=== PATIENT | male | born 1960 | race Caucasian/White ===

== ENCOUNTER 2017-09-28 03:09 | Inpatient (IN) | payer MEDICAID ==
[2017-09-28] VITALS (9 sets, daily range): BP systolic 115–220; BP diastolic 66–128; PULSE 78–126; RESP 16–24; TEMP 98.7–100.3; O2SAT 95–99
[2017-09-28] MEDS ORDERED: OMEP40CA2 PO (03:50)
[2017-09-28] MEDS ORDERED: LISI-519 PO (03:50)
[2017-09-28] MEDS ORDERED: DOLU1TAB PO (03:50)
[2017-09-28] MEDS ORDERED: ADVA100A INH (03:50)
[2017-09-28] MEDS ORDERED: XIFA200T4 PO (03:50)
[2017-09-28] MEDS ORDERED: TRUV200300 PO (03:50)
[2017-09-28] MEDS ORDERED: CLOP75TA PO (03:50)
[2017-09-28] MEDS ORDERED: ALPR1TAB3 PO (03:50)
[2017-09-28] MEDS ORDERED: CARV3.12 PO (03:50)
[2017-09-28] MEDS ORDERED: SIMV5TAB3 PO (03:50)
[2017-09-28] MEDS ORDERED: FURO1TAB62 PO (03:50)
[2017-09-28] MEDS ORDERED: ASPI-516 CHEW (03:50)
[2017-09-28] MEDS ORDERED: LACT10SO PO (03:50)
--- NOTE | 2017-09-28 04:11 | PD ---
HPI Chief Complaint: GI Complaint Time Seen by Provider: 03:31 Travel History International Travel<30 days: No Contact w/Intl Traveler<30days: No Traveled to known affect area: No History of Present Illness HPI The patient is a 57 year old female who presents to the [facility] emergency department with a history of abdominal pain that he reports is been present for the last month. He reports that the pain is sharp in character. He reports that it is constant. He reports that it is generalized throughout his abdomen. Patient reports that he was last admitted to [facility] approximately a month ago. He reports that he was diagnosed with an upper GI bleed related to a peptic ulcer, bilateral pneumonia. The patient completed a course of antibiotic 1 week after being discharged from that facility. The patient reports having 13 hours of intractable nausea vomiting. The patient reports that he had vomiting too many times to count. He denies having any diarrhea. His last bowel movement was earlier today. He reports that he normally has soft stool related to being on lactulose. The patient reports a history of liver cirrhosis related to hepatitis C. The patient reports that he underwent treatment with Harvoni and is clear of his hepatitis C since 3 years ago. Patient additionally reports that he is HIV positive. He was diagnosed in 2010. The patient reports that his viral load is undetectable. He does not know what his last CD4 count was. He is currently taking retroviral medications. The patient denies having any known fevers. He denies having any worsening cough or congestion. He reports having shortness of breath. He denies having any chest pain. On review of systems otherwise, he denies having neck pain, urinary symptoms, or neurologic symptoms. The patient persistently asked for pain medicine on my arrival to the room. The patient reports that he is currently on methadone. His repeatedly shakes her head no that this is not true. He insists that it is and actually becomes argumentative with her over this. He reports that he has been in a methadone clinic in [place] for treatment. [facility] Past Medical History Narrative Medical The patient's past medical history is significant for a history of HIV, hepatitis C, cirrhosis, history of GI bleed from peptic ulcer disease, history of splenomegaly, atrial fibrillation, history of coronary artery disease with 2 prior stents being placed, history of pacemaker placement. Diminished Hearing: Yes ([place]) Immune Disorder: Yes (HIV) Medical other: Yes (CIRRHOSIS, HEPATOSPLENOMEGALY) Past Surgical History Narrative Surgical The patient's past surgical history is significant for cardiac catheterization with stent placement, pacemaker placement, endoscopy. Cardiac Surgery: Yes (PACEMAKER) Coronary Stent: Yes (X2) Pacemaker: Yes Social History Alcohol Use: No Tobacco Use: No Substance Use: No Allergies-Medications (Allergen,Severity, Reaction): Coded Allergies: ondansetron (Verified Adverse Reaction, Intermediate, Nausea/Vomiting, 09/28) Reported Meds & Prescriptions Reported Meds & Active Scripts Active Reported Xifaxan (Rifaximin) 200 Mg Tab 200 Mg PO Q8HR Truvada (Emtricitabine-Tenofovir Disoproxil Fumarate) 200-300 Mg Tab 1 Tab PO DAILY Tivicay (Dolutegravir Sodium) 50 Mg Tab 50 Mg PO DAILY Simvastatin 5 Mg Tab 5 Mg PO DAILY Omeprazole 40 Mg Cap 40 Mg PO DAILY Lisinopril 5 Mg Tab 5 Mg PO DAILY Lactulose Liq (Lactulose) 10 Gm/15 Ml Soln 30 Ml PO Q6H Lasix (Furosemide) 20 Mg Tab 20 Mg PO DAILY Clopidogrel (Clopidogrel Bisulfate) 75 Mg Tab 75 Mg PO DAILY Carvedilol 3.125 Mg Tab 3.125 Mg PO BID Aspirin 81 Mg Chew 81 Mg CHEW DAILY Alprazolam 1 Mg Tab 1 Mg PO Q6H PRN Advair Diskus Inh (Fluticasone-Salmeterol Inh) 100-50 Mcg/Blist Aer 1 Puff INH BID Rinse mouth after use. Review of Systems Except as stated in HPI: all other systems reviewed are Neg General / Constitutional: No: Fever Eyes: No: Visual changes HENT: No: Headaches Cardiovascular: No: Chest Pain or Discomfort Respiratory: No: Shortness of Breath Gastrointestinal: Positive: Nausea, Vomiting, No: Abdominal Pain Genitourinary: No: Dysuria Musculoskeletal: No: Pain Skin: No Rash Neurologic: No: Weakness Psychiatric: No: Depression Endocrine: No: Polydipsia Hematologic/Lymphatic: No: Easy Bruising Physical Exam Narrative General: The patient is a well-developed well-nourished male who is uncomfortable appearing on arrival, tachypneic. Head and Neck exam: Head is normocephalic atraumatic. Eyes: EOMI, pupils are equal round and reactive to light. Nose: Midline septum with pink mucous membranes Mouth: Dentition unremarkable. Moist mucus membranes. Posterior oropharynx is not erythematous. No tonsillar hypertrophy. Uvula midline. Airway patent. Neck: No palpable lymphadenopathy. No nuchal rigidity. No thyromegaly. Cardiovascular: Sinus tachycardia in the low 100 without murmurs, gallops, or rubs. No pulse deficit to the extremities on simultaneous auscultation and palpation of his radial artery. Lungs: Clear to auscultation bilaterally. No wheezes, rhonchi, or rales. The patient is tachypneic on exam. The patient has no retractions, no tripoding, no paroxysmal abdominal breathing Abdomen: Soft, with diffuse tenderness reported on palpation to all 4 quadrants of the abdomen worse in bilateral lower quadrant. No tenderness specifically on palpation of her McBurney's point. Normal bowel sounds are audible no guarding , rebound, or rigidity. Negative Jensen sign Extremities: No clubbing, cyanosis, or edema. 2+ pulses in all 4 extremities. No calf tenderness on palpation. Back: No spinous process tenderness to palpation. No costovertebral angle tenderness to palpation. Neurologic Exam: Cranial nerves 2-12 were intact on exam. Strength is 5/5 in all 4 extremities. No sensory deficits noted. The patient has generalized weakness. Skin Exam: No rash noted. Intact skin that is warm and dry. Data Data Last Documented VS Vital Signs Date Time Temp Pulse Resp B/P (MAP) Pulse Ox O2 Delivery O2 Flow Rate FiO2 09/28/17 05:48 84 18 146/75 (98) 99 Room Air 09/28/17 03:15 100.3 Orders Orders Electrocardiogram (09/28/17 03:52) Complete Blood Count With Diff (09/28/17 03:52) Comprehensive Metabolic Panel (09/28/17 03:52) Creatine Kinase (Cpk) (09/28/17 03:52) Ckmb (Isoenzyme) Profile (09/28/17 03:52) Troponin I (09/28/17 03:52) B-Type Natriuretic Peptide (09/28/17 03:52) Prothrombin Time / Inr (Pt) (09/28/17 03:52) Act Partial Throm Time (Ptt) (09/28/17 03:52) Arterial Blood Gas (Abg) (09/28/17 03:52) Blood Culture (09/28/17 03:52) C-Reactive Protein (Crp) (09/28/17 03:52) Lipase (09/28/17 03:52) Urinalysis - C+S If Indicated (09/28/17 03:52) Magnesium (Mg) (09/28/17 03:52) Chest, Single Ap (09/28/17 03:52) Ct Abd/Pel W Iv Contrast(Rout) (09/28/17 03:52) Iv Access Insert/Monitor (09/28/17 03:52) Ecg Monitoring (09/28/17 03:52) Oximetry (09/28/17 03:52) Blood Glucose (09/28/17 03:52) Drug Screen, Random Urine (09/28/17 03:52) Alcohol (Ethanol) (09/28/17 03:52) Salicylates (Aspirin) (09/28/17 03:52) Tylenol (Acetaminophen) (09/28/17 03:52) Lactic Acid Sepsis Protocol (09/28/17 03:52) Sodium Chlor 0.9% 1000 Ml Inj (Ns 1000 M (09/28/17 04:15) Prochlorperazine Inj (Compazine Inj) (09/28/17 04:15) Morphine Inj (Morphine Inj) (09/28/17 04:45) Sodium Chlor 0.9% 1000 Ml Inj (Ns 1000 M (09/28/17 04:45) Acetaminophen (Tylenol) (09/28/17 04:45) Ct Brain W/O Iv Contrast(Rout) (09/28/17 05:00) CKMB (09/28/17 04:05) CKMB% (09/28/17 04:05) Sodium Chlorid 0.9% 500 Ml Inj (Ns 500 M (09/28/17 06:00) Piperacil-Tazo 3.375 Gm Premix (Zosyn 3. (09/28/17 06:00) Vancomycin Inj (Vancomycin Inj) (09/28/17 06:00) Iodixanol 320 Inj (Rad Ct) (Visipaque 32 (09/28/17 06:00) Admit Order (Ed Use Only) (09/28/17 06:12) Labs Laboratory Tests Test 09/28/17 04:05 09/28/17 04:09/28/17 06:10 White Blood Count 13.2 TH/MM3 Red Blood Count 5.73 MIL/MM3 Hemoglobin 17.1 GM/DL Hematocrit 50.4 % Mean Corpuscular Volume 87.9 FL Mean Corpuscular Hemoglobin 29.9 PG Mean Corpuscular Hemoglobin Concent 34.0 % Red Cell Distribution Width 18.1 % Platelet Count 299 TH/MM3 Mean Platelet Volume 8.3 FL Neutrophils (%) (Auto) 78.5 % Lymphocytes (%) (Auto) 16.3 % Monocytes (%) (Auto) 4.8 % Eosinophils (%) (Auto) 0.1 % Basophils (%) (Auto) 0.3 % Neutrophils # (Auto) 10.3 TH/MM3 Lymphocytes # (Auto) 2.2 TH/MM3 Monocytes # (Auto) 0.6 TH/MM3 Eosinophils # (Auto) 0.0 TH/MM3 Basophils # (Auto) 0.0 TH/MM3 CBC Comment DIFF FINAL Differential Comment Prothrombin Time 11.7 SEC Prothromb Time International Ratio 1.2 RATIO Activated Partial Thromboplast Time 26.8 SEC Blood Urea Nitrogen 21 MG/DL Creatinine 1.84 MG/DL Random Glucose 177 MG/DL Total Protein 10.0 GM/DL Albumin 3.6 GM/DL Calcium Level 9.5 MG/DL Magnesium Level 2.3 MG/DL Alkaline Phosphatase 349 U/L Aspartate Amino Transf (AST/SGOT) 83 U/L Alanine Aminotransferase (ALT/SGPT) 37 U/L Total Bilirubin 1.5 MG/DL Sodium Level 141 MEQ/L Potassium Level 4.9 MEQ/L Chloride Level 113 MEQ/L Carbon Dioxide Level 16.7 MEQ/L Anion Gap 11 MEQ/L Estimat Glomerular Filtration Rate 38 ML/MIN Lactic Acid Level 2.4 mmol/L 1.2 mmol/L Total Creatine Kinase 103 U/L Creatine Kinase MB 4.6 NG/ML Troponin I 0.12 NG/ML C-Reactive Protein 1.74 MG/DL B-Type Natriuretic Peptide 174 PG/ML Lipase 151 U/L Salicylates Level LESS THAN 1.7 MG/DL Acetaminophen Level LESS THAN 2.0 MCG/ML Ethyl Alcohol Level LESS THAN 3 MG/DL Blood Gas Puncture Site LT RADIAL Blood Gas Patient Temperature 98.6 Blood Gas HCO3 18 mmol/L Blood Gas Base Excess -5.8 mmol/L Blood Gas Oxygen Saturation 94 % Arterial Blood pH 7.45 Arterial Blood Partial Pressure CO2 26 mmHg Arterial Blood Partial Pressure O2 78 mmHG Arterial Blood Oxygen Content 22.8 Vol % Arterial Blood Carboxyhemoglobin 1.0 % Arterial Blood Methemoglobin 0.5 % Blood Gas Hemoglobin 17.2 G/DL Oxygen Delivery Device ROOM AIR Blood Gas Inspired Oxygen 21 % MDM Medical Decision Making Medical Screen Exam Complete: Yes Emergency Medical Condition: Yes Medical Record Reviewed: Yes Differential Diagnosis DKA, versus starvation ketoacidosis, versus alcohol-related ketoacidosis, versus sepsis with lactic acidosis Narrative Course During the course of the patient's emergency department visit, the patient's history, examination, and differential diagnosis were reviewed with the patient. The patient was placed on a environmental monitoring specialist with oximetry and frequent blood pressure monitoring. The patient had IV access obtained and blood work sent for analysis. The patient had an ABG done on arrival. The patient's ABG revealed a pH of 7.447, PCO2 25.8, PO2 77.6, bicarb 17.5, hemoglobin 17.2. The patient was initially provided normal saline 2 L IV fluid bolus, Compazine 5 mg IV for nausea, morphine 4 mg IV for pain. After the patient was noted to have a leukocytosis patient was started on broad-spectrum antibiotics to include vancomycin 1 g IV, Zosyn 3.375 g IV. The patient's laboratory studies were reviewed and remarkable for a white count of 13.2, hemoglobin 17.1, platelets 299 with neutrophils 78.5. CMP is remarkable for chloride of 113, bicarb 16.7, BUN 21, creatinine 1.84, glucose 177, total bilirubin 1.5, AST 83, alk phos 349, CPK 103, CK-MB 4.6, troponin I is 0.12 likely related to tachycardia and renal insufficiency as the patient denies having any chest pain, C-reactive protein 1.74, BNP 174, total protein 10 , lipase 151, PT 11.7, PTT 26.8, PT 11.7, PTT 26.8 Radiology studies were reviewed and remarkable for a chest x-ray that shows small pleural-based opacities bilaterally could represent pleural thickening or small volume of pleural fluid otherwise unremarkable. CT scan of the brain shows no acute intracranial abnormality. CT scan of the abdomen and pelvis shows mild wall thickening and surrounding inflammation of the proximal sigmoid colon which could represent a colitis. There is left gastric lymphadenopathy from uncertain etiology. Abnormal loculated liver characteristic of cirrhosis. There is right lower lobe atelectasis. The patient's results were discussed with the patient, including the plan of care. I explained that further testing and/ or monitoring is indicated based on the patient's history, examination, and/ or laboratory findings. Therefore, I recommended admission for additional evaluation. The patient expressed understanding and was agreeable with this plan. The patient was admitted to the hospital in guarded condition and sent to a bed under the care of the [facility]. Critical Care Narrative Aggregate critical care time was 35 minutes. Time to perform other separately billable procedures was not included in the critical care time. My time did not include minutes spent treating any other patients simultaneously or on activities that did not directly contribute to the patient's treatment. The services I provided to this patient were to treat and/or prevent clinically significant deterioration that could result in: Cardiovascular collapse from sepsis, versus fluid overload with respiratory failure from resuscitation with crystalloid I provided critical care services requiring my management, as noted below: Chart data review, documentation time, medication orders and management, vital sign assessments/reviewing monitor data, ordering and reviewing lab tests, ordering and interpreting/reviewing x-rays and diagnostic studies, care of the patient and discussion of the patient with the admitting physicians. Sepsis Criteria SIRS Criteria (2 or more): Heart rate over 90, WBC > 63381, < 4000 or > 10% bands Sepsis Criteria (SIRS+source): Infect source susp/known Severe Sepsis (+one): Lactate >2 Criteria Outcome: Meets SIRS criteria, Meets sepsis criteria, Meets severe sepsis criteria Physician Communication Physician Communication The patient's case including history, pertinent physical examination findings, and laboratory studies were discussed with Dr. Melara. It was agreed that the patient would be admitted to the [facility] service. Diagnosis Primary Impression: Colitis Additional Impressions: Dehydration Lactic acid acidosis Admitting Information Admitting Physician Requests: Admit Yola Lewis MD Sep 28, 2017 04:11
[2017-09-28] MEDS ORDERED: SODIUM CHLOR 0.9% 1000 ML INJ 1,000 ML IV ONE ×2 (04:15→04:45)
[2017-09-28] MEDS ORDERED: PROCHLORPERAZINE INJ 10 MG/2 ML VIAL IV PUSH ONE (04:15)
[2017-09-28 04:26] LABS: AUTOMATED NEUTROPHIL # 10.3 TH/MM3 (1.8-7.7); BASOPHIL % 0.3 % (0.0-2.0); EOSINOPHIL % 0.1 % (0.0-4.0); HEMATOCRIT 50.4 % (39.0-51.0); HEMOGLOBIN 17.1 GM/DL (13.0-17.0); LYMPH % 16.3 % (9.0-44.0); LYMPHOCYTE # 2.2 TH/MM3 (1.0-4.8); MEAN CELL VOLUME 87.9 FL (80.0-100.0); MEAN CORPUSCULAR HEMOGLOBIN 29.9 PG (27.0-34.0); MEAN PLATELET VOLUME 8.3 FL (7.0-11.0); MONO % 4.8 % (0.0-8.0); MONOCYTE # 0.6 TH/MM3 (0-0.9); NEUT % 78.5 % (16.0-70.0); PLATELET COUNT 299 TH/MM3 (150-450); RED BLOOD COUNT 5.73 MIL/MM3 (4.50-5.90); RED CELL DISTRIBUTION WIDTH 18.1 % (11.6-17.2); WHITE BLOOD COUNT 13.2 TH/MM3 (4.0-11.0)
[2017-09-28 04:27] LABS: INTERNATIONAL NORMALIZED RATIO 1.2 RATIO; PROTHROMBIN TIME - PATIENT 11.7 SEC (9.8-11.6)
[2017-09-28 04:45] LABS: LACTIC ACID SEPSIS PROTOCOL 2.4 mmol/L (0.4-2.0)
[2017-09-28] MEDS ORDERED: MORPHINE SULFATE 4 MG/ML INJ IV PUSH ONE (04:45)
[2017-09-28] MEDS ORDERED: ACETAMINOPHEN 325 MG TAB PO ONE (04:45)
[2017-09-28 04:55] LABS: ALBUMIN 3.6 GM/DL (3.4-5.0); ALKALINE PHOSPHATASE 349 U/L (45-117); ALT (GPT) 37 U/L (12-78); AST (GOT) 83 U/L (15-37); BICARBONATE 16.7 MEQ/L (21.0-32.0); BLOOD UREA NITROGEN 21 MG/DL (7-18); C-REACTIVE PROTEIN 1.74 MG/DL (0.00-0.30); CALCIUM 9.5 MG/DL (8.5-10.1); CHLORIDE 113 MEQ/L (98-107); CREATININE 1.84 MG/DL (0.60-1.30); GLOMERULAR FILTRATION RATE 38 ML/MIN (>89); GLUCOSE,RANDOM 177 MG/DL (74-106); MAGNESIUM 2.3 MG/DL (1.5-2.5); SODIUM (NA) 141 MEQ/L (136-145); TOTAL BILIRUBIN ADULT 1.5 MG/DL (0.2-1.0); TROPONIN I 0.12 NG/ML (0.02-0.05)
--- NOTE | 2017-09-28 05:03 | RADRPT ---
EXAM DATE/TIME: 09/28/2017 04:21 [facility] COMPARISON: No previous studies available for comparison. INDICATIONS : Shortness of breath. MEDICAL HISTORY : None. SURGICAL HISTORY : Pacemaker. ENCOUNTER: Initial ACUITY: 1 day PAIN SCORE: 6/10 LOCATION: Bilateral chest FINDINGS: Portable AP view of the chest demonstrates a normal-sized cardiac silhouette. Left chest wall cardiac pacing device is present. No airspace consolidation or pneumothorax is identified. There are small p leural-based opacities bilaterally in the inferior hemithoraces. Bones and soft tissues demonstrate n o acute finding. CONCLUSION: Small pleural-based opacities bilaterally could represent pleural thickening or small volume of pleur al fluid. Otherwise, no acute finding is identified. Juan Carlos Langley MD on September 28, 2017 at 5:01 Board Certified Radiologist. This report was verified electronically.
[2017-09-28 05:05] LABS: ACETAMINOPHEN LESS THAN 2.0 MCG/ML (10.0-30.0)
[2017-09-28] MEDS ORDERED: PIPERACIL-TAZO 3.375 GM PREMIX 50 ML IV ONE (06:00)
[2017-09-28] MEDS ORDERED: IODIXANOL 320 MG/ML 10 ML VIAL (for Rad CT) IVCONTRAST ONE (06:00)
[2017-09-28] MEDS ORDERED: SODIUM CHLORID 0.9% 500 ML INJ 500 ML IV ONE (06:00)
[2017-09-28] MEDS ORDERED: VANCOMYCIN INJ 1,000 MG in SODIUM CHLOR 0.9% 250 ML INJ 250 ML IV ONE (06:00)
--- NOTE | 2017-09-28 06:14 | RADRPT ---
EXAM DATE/TIME: 09/28/2017 05:30 [facility] COMPARISON: No previous studies available for comparison. INDICATIONS : Altered mental status. RADIATION DOSE: 66.34 CTDIvol (mGy) ; Tabletop CT Head MEDICAL HISTORY : Cirrhosis. HIV. SURGICAL HISTORY : Pacemaker. Coronary artery stent. ENCOUNTER: Initial ACUITY: 1 day PAIN SCALE: 0/10 LOCATION: cranial TECHNIQUE: Multiple contiguous axial images were obtained of the head. Using automated exposure control and adj ustment of the mA and/or kV according to patient size, radiation dose was kept as low as reasonably a chievable to obtain optimal diagnostic quality images. DICOM format image data is available electro nically for review and comparison. FINDINGS: CEREBRUM: There is mild generalized atrophy. Ventricles are normal. No evidence of midline shift, mass lesion, hemorrhage or acute infarction. No extra-axial fluid collections are seen. POSTERIOR FOSSA: The cerebellum and brainstem are intact. The 4th ventricle is midline. The cerebellopontine angle i s unremarkable. EXTRACRANIAL: Visualized sinuses are clear. SKULL: The calvaria is intact. No evidence of skull fracture. CONCLUSION: No acute intracranial abnormality is identified. Juan Carlos Langley MD on September 28, 2017 at 6:11 Board Certified Radiologist. This report was verified electronically.
--- NOTE | 2017-09-28 06:19 | RADRPT ---
EXAM DATE/TIME: 09/28/2017 05:33 [facility] COMPARISON: No previous studies available for comparison. INDICATIONS : Diffuse abdominal pain with nausea and vomiting. IV CONTRAST: 50 cc Visipaque (iodixanol) IV ORAL CONTRAST: No oral contrast ingested. RADIATION DOSE: 9.90 CTDIvol (mGy) MEDICAL HISTORY : Cirrhosis. HIV. SURGICAL HISTORY : Pacemaker. Coronary artery stent. ENCOUNTER: Initial ACUITY: 1 day PAIN SCALE: 5/10 LOCATION: Abdomen. TECHNIQUE: Volumetric scanning of the abdomen and pelvis was performed. Using automated exposure control and ad justment of the mA and/or kV according to patient size, radiation dose was kept as low as reasonably achievable to obtain optimal diagnostic quality images. DICOM format image data is available electro nically for review and comparison. FINDINGS: There is respiratory motion artifact. LOWER LUNGS: There is right lower lobe consolidation versus atelectasis with adjacent pleural thickening. Pacing w ires are present in the right heart. LIVER: The liver demonstrates an abnormal lobulated contour. No focal liver lesion is appreciated. Portal ve in is patent. There is no dilation of the biliary tree. No calcified gallstones. SPLEEN: Normal size without lesion. PANCREAS: Within normal limits. KIDNEYS: Normal in size and shape. There is no mass, stone or hydronephrosis. There is a cyst in the left mid kidney measuring 1.8 cm. An incidental 7 mm low density lesion in the left mid kidney is too small t o characterize. ADRENAL GLANDS: Within normal limits. VASCULAR: There is no aortic aneurysm. There is mild/moderate atherosclerotic disease. BOWEL/MESENTERY: The stomach and small bowel demonstrate no acute finding. Appendix is normal. There is mild wall thic kening and mild induration of the fat surrounding the proximal sigmoid colon. No free air or free flu id is present. ABDOMINAL WALL: Within normal limits. RETROPERITONEUM: There are mildly enlarged left gastric lymph nodes. No other retroperitoneal lymphadenopathy is seen. BLADDER: No wall thickening or mass. REPRODUCTIVE: Within normal limits. INGUINAL: There is no lymphadenopathy or hernia. MUSCULOSKELETAL: There degenerative changes of the lumbar spine. CONCLUSION: 1. Mild wall thickening and surrounding inflammation of the proximal sigmoid colon could represent a colitis. 2. There is left gastric lymphadenopathy from uncertain etiology. 3. Abnormal lobulated liver characteristic of cirrhosis. 4. There is right lower lobe atelectasis versus consolidation with adjacent pleural thickening. Juan Carlos Langley MD on September 28, 2017 at 6:13 Board Certified Radiologist. This report was verified electronically.
[2017-09-28] MEDS ORDERED: SENNOSIDES 8.6 MG TAB PO PRN (06:45)
[2017-09-28] MEDS ORDERED: MAGNESIUM HYDROXIDE SUSP 30 ML CUP PO PRN (06:45)
[2017-09-28] MEDS ORDERED: BISACODYL 10 MG SUPP RECTAL PRN (06:45)
[2017-09-28] MEDS ORDERED: ONDANSETRON HCL 4 MG/2 ML VIAL IVP PRN (06:45)
[2017-09-28] MEDS ORDERED: NALOXONE HCL 0.4 MG/ML AMP IV PUSH PRN (06:45)
[2017-09-28] MEDS: SODIUM CHLOR 0.9% 1000 ML INJ 1,000 ML IV SCH (07:32)
--- NOTE | 2017-09-28 08:44 | HHI.HP ---
HPI Service [facility] Primary Care Physician Unknown Admission Diagnosis Dehydration, intractable vomiting Diagnoses: (1) Colitis Diagnosis: Principal Travel History International Travel<30 Days: No Contact w/Intl Traveler <30 Da: No Traveled to Known Affected Are: No Sepsis Criteria SIRS Criteria (2 or more): Heart rate over 90, WBC > 73272, < 4000 or > 10% bands Sepsis Criteria (SIRS+source): Infect source susp/known Criteria Outcome: Meets sepsis criteria History of Present Illness patient is a 57 y/o male with history of CAD, hepatitis C, cirrhosis, HIV positive, PUD who presented to ER with abdominal pain. he says that he was admitted to [facility] about a month ago and was treated with pneumonia. he had EGD at the time for GI bleed which showed esophageal ulcer. he says that he's had abdominal pain for about a couple of weeks. pain is more or less generalized and constant. pain is moderate to severe in intensity. it was associated with nausea and emesis. he's also complaining of diarrhea. he says that his stool is mixed with streaks of blood. his last colonoscopy was two years which showed some polys-per the patient.he reports some fever and chills at home. he denies any chest pain. Review of Systems Constitutional: COMPLAINS OF: Fever, Chills, DENIES: Weight loss, Night Sweats Eyes: DENIES: Blurred vision, Diplopia, Vision loss, Double Vision Ears, nose, mouth, throat: DENIES: Tinnitus, Vertigo, Throat pain, Epistaxis Respiratory: DENIES: Apneas, Cough, Snoring, Wheezing, Hemoptysis, Sputum production, Shortness of breath Cardiovascular: DENIES: Chest pain, Palpitations, Syncope, Dyspnea on Exertion , PND, Lower Extremity Edema, Orthopnea, Claudication Gastrointestinal: COMPLAINS OF: Abdominal pain, Bloody stools, Diarrhea, Nausea , Vomiting, DENIES: Black stools, Constipation, Difficulty Swallowing, Anorexia Genitourinary: DENIES: Urinary frequency, Urgency, Hematuria, Dysuria Musculoskeletal: DENIES: Joint pain, Muscle aches, Stiffness, Joint Swelling Integumentary: DENIES: Rash Neurologic: DENIES: Abnormal gait, Headache, Localized weakness, Paresthesias, Seizures, Speech Problems, Tremor, Poor Balance Psychiatric: DENIES: Anxiety, Confusion, Mood changes, Depression, Hallucinations, Agitation, Suicidal Ideation, Homicidal Ideation, Delusions Past Family Social History Past Medical History CAD/ HIV positive/ hepatitis C Past Surgical History pacemaker and stent placement. Reported Medications Xifaxan (Rifaximin) 200 Mg Tab 200 Mg PO Q8HR Truvada (Emtricitabine-Tenofovir Disoproxil Fumarate) 200-300 Mg Tab 1 Tab PO DAILY Tivicay (Dolutegravir Sodium) 50 Mg Tab 50 Mg PO DAILY Simvastatin 5 Mg Tab 5 Mg PO DAILY Omeprazole 40 Mg Cap 40 Mg PO DAILY Lisinopril 5 Mg Tab 5 Mg PO DAILY Lactulose Liq (Lactulose) 10 Gm/15 Ml Soln 30 Ml PO Q6H Lasix (Furosemide) 20 Mg Tab 20 Mg PO DAILY Clopidogrel (Clopidogrel Bisulfate) 75 Mg Tab 75 Mg PO DAILY Carvedilol 3.125 Mg Tab 3.125 Mg PO BID Aspirin 81 Mg Chew 81 Mg CHEW DAILY Alprazolam 1 Mg Tab 1 Mg PO Q6H PRN Advair Diskus Inh (Fluticasone-Salmeterol Inh) 100-50 Mcg/Blist Aer 1 Puff INH BID Rinse mouth after use. Allergies: Coded Allergies: ondansetron (Verified Adverse Reaction, Intermediate, Nausea/Vomiting, 09/28) Active Ordered Medications Inpatient Medications Acetaminophen (Tylenol) 650 mg ONCE ONCE PO Last administered on 09/28/17at 05: 30; Start 09/28/17 at 04:45; Stop 09/28/17 at 04:46; Status DC Alprazolam (Xanax) 1 mg Q6H PRN PO ANXIETY; Start 09/28/17 at 06:45 Aspirin (Aspirin Chew) 81 mg DAILY CHEW ; Start 09/28/17 at 09:00 Bisacodyl (Dulcolax Supp) 10 mg DAILY PRN RECTAL SEVERE CONSITIPATION; Start at 06:45 Budesonide/ Formoterol Fumarate (Symbicort 80-4.5 Mcg Inh) 2 puff BID INH ; Start 09/28/17 at 09:00 Carvedilol (Coreg) 3.125 mg BID PO ; Start 09/28/17 at 09:00 Clopidogrel Bisulfate (Plavix) 75 mg DAILY PO ; Start 09/28/17 at 09:00 Emtricitabine/ Tenofovir (Truvada 200-300 Mg) 1 tab DAILY PO ; Start 09/28/17 at 09:00 Furosemide (Lasix) 20 mg DAILY PO ; Start 09/28/17 at 09:00 Lactulose (Lactulose Liq) 30 ml DAILY PRN PO SEVERE CONSITIPATION; Start at 06:45 Lisinopril (Prinivil) 5 mg DAILY PO ; Start 09/28/17 at 09:00 Magnesium Hydroxide (Milk Of Magnesia Liq) 30 ml Q12H PRN PO Mild constipation ; Start 09/28/17 at 06:45 Morphine Sulfate (Morphine Inj) 4 mg ONCE ONCE IV PUSH Last administered on 09/28/17at 05:29; Start 09/28/17 at 04:45; Stop 09/28/17 at 04:46; Status DC Naloxone HCl (Narcan Inj) 0.4 mg UNSCH PRN IV PUSH SEE LABEL COMMENTS; Start at 06:45 Ondansetron HCl (Zofran Inj) 4 mg Q6H PRN IVP NAUSEA OR VOMITING; Start at 06:45 Pantoprazole Sodium (Protonix) 40 mg DAILY PO ; Start 09/28/17 at 09:00 Piperacillin Sod/ Tazobactam Sod 50 ml @ 100 mls/hr Q6H IV ; Start 09/28/17 at 12:00 Pravastatin Sodium (Pravachol) 10 mg DAILY PO ; Start 09/28/17 at 09:00 Prochlorperazine Edisylate (Compazine Inj) 5 mg ONCE ONCE IV PUSH Last administered on 09/28/17at 04:28; Start 09/28/17 at 04:15; Stop 09/28/17 at 04:16; Status DC Senna/Docusate Sodium (Meghan-Colace) 1 tab BID PO ; Start 09/28/17 at 09:00 Sennosides (Senokot) 17.2 mg Q12H PRN PO Moderate constipation; Start 09/28/17 at 06:45 Sodium Chloride (NS Flush) 2 ml BID IV FLUSH ; Start 09/28/17 at 09:00 Vancomycin HCl 1000 mg/Sodium Chloride 250 ml @ 250 mls/hr ONCE ONCE IV Last administered on 09/28/17at 06:17; Start 09/28/17 at 06:00; Stop 09/28/17 at 06:59; Status DC Family History lung cancer in parents. Social History no smoking or drinking. Physical Exam Vital Signs Vital Signs Date Time Temp Pulse Resp B/P (MAP) Pulse Ox O2 Delivery O2 Flow Rate FiO2 09/28/17 08:14 98.8 81 16 115/66 (82) 96 Room Air 09/28/17 05:48 84 18 146/75 (98) 99 Room Air 09/28/17 03:15 100.3 126 20 194/115 (141) 97 Physical Exam GENERAL: This is a well-nourished, well-developed patient, in no apparent distress. SKIN: No rashes, ecchymoses or lesions. Cool and dry. HEAD: Atraumatic. Normocephalic. No temporal or scalp tenderness. EYES: Pupils equal round and reactive. Extraocular motions intact. No scleral icterus. No injection or drainage. ENT: Nose without bleeding, purulent drainage or septal hematoma. Throat without erythema, tonsillar hypertrophy or exudate. Uvula midline. Airway patent. NECK: Trachea midline. No JVD or lymphadenopathy. Supple, nontender, no meningeal signs. CARDIOVASCULAR: Regular rate and rhythm without murmurs, gallops, or rubs. RESPIRATORY: Clear to auscultation. Breath sounds equal bilaterally. No wheezes , rales, or rhonchi. GASTROINTESTINAL: Abdomen soft, non-tender, nondistended. No hepato-splenomegaly , or palpable masses. No guarding. MUSCULOSKELETAL: Extremities without clubbing, cyanosis, or edema. No joint tenderness, effusion, or edema noted. No calf tenderness. Negative Homans sign bilaterally. NEUROLOGICAL: Awake and alert. Cranial nerves II through XII intact. Motor and sensory grossly within normal limits. Five out of 5 muscle strength in all muscle groups. Normal speech. Laboratory Laboratory Tests Test 09/28/17 04:05 09/28/17 04:19 09/28/17 06:10 09/28/17 07:55 White Blood Count 13.2 Red Blood Count 5.73 Hemoglobin 17.1 Hematocrit 50.4 Mean Corpuscular Volume 87.9 Mean Corpuscular Hemoglobin 29.9 Mean Corpuscular Hemoglobin Concent 34.0 Red Cell Distribution Width 18.1 Platelet Count 299 Mean Platelet Volume 8.3 Neutrophils (%) (Auto) 78.5 Lymphocytes (%) (Auto) 16.3 Monocytes (%) (Auto) 4.8 Eosinophils (%) (Auto) 0.1 Basophils (%) (Auto) 0.3 Neutrophils # (Auto) 10.3 Lymphocytes # (Auto) 2.2 Monocytes # (Auto) 0.6 Eosinophils # (Auto) 0.0 Basophils # (Auto) 0.0 CBC Comment DIFF FINAL Differential Comment Prothrombin Time 11.7 Prothromb Time International Ratio 1.2 Activated Partial Thromboplast Time 26.8 Blood Urea Nitrogen 21 Creatinine 1.84 Random Glucose 177 Total Protein 10.0 Albumin 3.6 Calcium Level 9.5 Magnesium Level 2.3 Alkaline Phosphatase 349 Aspartate Amino Transf (AST/SGOT) 83 Alanine Aminotransferase (ALT/SGPT) 37 Total Bilirubin 1.5 Sodium Level 141 Potassium Level 4.9 Chloride Level 113 Carbon Dioxide Level 16.7 Anion Gap 11 Estimat Glomerular Filtration Rate 38 Lactic Acid Level 2.4 1.2 Total Creatine Kinase 103 Creatine Kinase MB 4.6 Troponin I 0.12 C-Reactive Protein 1.74 B-Type Natriuretic Peptide 174 Lipase 151 Salicylates Level LESS THAN 1.7 Acetaminophen Level LESS THAN 2.0 Ethyl Alcohol Level LESS THAN 3 Blood Gas Puncture Site LT RADIAL Blood Gas Patient Temperature 98.6 Blood Gas HCO3 18 Blood Gas Base Excess -5.8 Blood Gas Oxygen Saturation 94 Arterial Blood pH 7.45 Arterial Blood Partial Pressure CO2 26 Arterial Blood Partial Pressure O2 78 Arterial Blood Oxygen Content 22.8 Arterial Blood Carboxyhemoglobin 1.0 Arterial Blood Methemoglobin 0.5 Blood Gas Hemoglobin 17.2 Oxygen Delivery Device ROOM AIR Blood Gas Inspired Oxygen 21 Ammonia 44 Date/Time Source Procedure Growth Status 09/28/17 04:05 Blood Peripheral Aerobic Blood Culture Pending Received 09/28/17 04:05 Blood Peripheral Anaerobic Blood Culture Pending Received Result Diagram: 09/28/17 0405 09/28/17 0405 Imaging Last Impressions Head CT 09/28/17 0500 Signed Impressions: Service Date/Time: Thursday, September 28, 2017 05:30 - CONCLUSION: No acute intracranial abnormality is identified. Juan Carlos Langley MD Chest X-Ray 09/28/17351 Signed Impressions: Service Date/Time: Thursday, September 28, 2017 04:21 - CONCLUSION: Small pleural-based opacities bilaterally could represent pleural thickening or small volume of pleural fluid. Otherwise, no acute finding is identified. Juan Carlos Langley MD Abdomen/Pelvis CT 09/28/17351 Signed Impressions: Service Date/Time: Thursday, September 28, 2017 05:33 - CONCLUSION: 1. Mild wall thickening and surrounding inflammation of the proximal sigmoid colon could represent a colitis. 2. There is left gastric lymphadenopathy from uncertain etiology. 3. Abnormal lobulated liver characteristic of cirrhosis. 4. There is right lower lobe atelectasis versus consolidation with adjacent pleural thickening. Juan Carlos Langley MD EKG; sinus rhythm with no acute ST-T changes. Caprini VTE Risk Assessment Caprini VTE Risk Assessment: Mod/High Risk (score >= 2) Caprini Risk Assessment Model Point Value = 1 Point Value = 2 Point Value = 3 Point Value = 5 Age 41-60 Minor surgery BMI > 25 kg/m2 Swollen legs Varicose veins or History of unexplained or recurrent spontaneous Oral contraceptives or hormone replacement Sepsis (< 1 month) Serious lung disease, including pneumonia (< 1 month) Abnormal pulmonary function Acute myocardial infarction Congestive heart failure (< 1 month) History of inflammatory bowel disease Medical patient at bed rest Age 61-74 Arthroscopic surgery Major open surgery (> 45 min) Laparoscopic surgery (> 45 min) Malignancy Confined to bed (> 72 hours) Immobilizing plaster cast Central venous access Age >= 75 History of VTE Family history of VTE Factor V Leiden Prothrombin [id number] Lupus anticoagulant Anticardiolipin antibodies Elevated serum homocysteine Heparin-induced thrombocytopenia Other congenital or acquired thrombophilia Stroke (< 1 month) Elective arthroplasty Hip, pelvis, or leg fracture Acute spinal cord injury (< 1 month) Prophylaxis Regimen Total Risk Factor Score Risk Level Prophylaxis Regimen 0-1 Low Early ambulation 2 Moderate Order ONE of the following: *Sequential Compression Device (SCD) *Heparin 5000 units SQ BID 3-4 Higher Order ONE of the following medications: *Heparin 5000 units SQ TID *Enoxaparin/Lovenox 40 mg SQ daily (WT < 150 kg, CrCl > 30 mL/min) *Enoxaparin/Lovenox 30 mg SQ daily (WT < 150 kg, CrCl > 10-29 mL/min) *Enoxaparin/Lovenox 30 mg SQ BID (WT < 150 kg, CrCl > 30 mL/min) AND/OR *Sequential Compression Device (SCD) 5 or more Highest Order ONE of the following medications: *Heparin 5000 units SQ TID (Preferred with Epidurals) *Enoxaparin/Lovenox 40 mg SQ daily (WT < 150 kg, CrCl > 30 mL/min) *Enoxaparin/Lovenox 30 mg SQ daily (WT < 150 kg, CrCl > 10-29 mL/min) *Enoxaparin/Lovenox 30 mg SQ BID (WT < 150 kg, CrCl > 30 mL/min) AND *Sequential Compression Device (SCD) Assessment and Plan Assessment and Plan A/P - sepsis -colitis - rectal bleed NPO for now- continue with IV antibiotics and supportive care with IV fluid, pain control and antiemetics as needed. check the stool for c-diff and C/S- consult GI. -renal insufficiency with unknown duration- likely acute due to dehydration continue IV fluid and monitor the renal function; BMP tomorrow. -mild elevation of troponin with history of CAD- denies chest pain and no acute ST-T changes on EKG continue aspirin and plavix - ( with close monitoring for active bleed ) , coreg, lisinopril and statin- will trend the cardiac enzymes -elevated LFT's- with history of hepatitis C- will monitor -HIV -positive- on anti- retroviral meds -DVT prophylaxis ; SCD's Discussed Condition With the patient. Physician Certification 2 Midnight Certification Type: Admission for Inpatient Services Order for Inpatient Services The services are ordered in accordance with Medicare regulations or non- Medicare payer requirements, as applicable. In the case of services not specified as inpatient-only, they are appropriately provided as inpatient services in accordance with the 2-midnight benchmark. Estimated LOS (days): 2 days is the estimated time the patient will need to remain in the hospital, assuming treatment plan goals are met and no additional complications. Post-Hospital Plan: Home José Bustamante MD Sep 28, 2017 08:43
[2017-09-28] MEDS: SODIUM CHLORIDE 0.9% FLUSH 10 ML FLUSH IV FLUSH SCH ×2 (09:00→20:49)
[2017-09-28] MEDS: DOCUSATE SODIUM 50 MG/SENNA 8.6 MG TAB PO SCH ×2 (09:00→20:49)
[2017-09-28] MEDS: CLOPIDOGREL 75 MG TAB PO SCH (09:00)
[2017-09-28] MEDS: DOLUTEGRAVIR SODIUM 50 MG TAB PO SCH (09:00)
[2017-09-28] MEDS: EMTRICITABINE/TENOFOVIR 200 MG/300 MG TAB PO SCH (09:00)
[2017-09-28] MEDS: LISINOPRIL 5 MG TAB PO SCH (09:00)
[2017-09-28] MEDS: CARVEDILOL 3.125 MG TAB PO SCH ×2 (09:00→20:49)
[2017-09-28] MEDS: ASPIRIN 81 MG CHEW TAB CHEW SCH (09:00)
[2017-09-28] MEDS: PRAVASTATIN SOD 10 MG TAB PO SCH (09:00)
[2017-09-28] MEDS: FUROSEMIDE 20 MG TAB PO SCH (09:00)
[2017-09-28] MEDS: PANTOPRAZOLE SOD 40 MG DELAYED RELEASE TAB PO SCH (09:00)
[2017-09-28] MEDS: BUDESONIDE-FORMOTEROL 80/4.5 MCG INHALER INH SCH ×2 (09:10→20:49)
--- NOTE | 2017-09-28 10:47 | EKG ---
Date Performed: 09/28/2017 Time Performed: 03:32:58 PTAGE: 57 years EKG: SINUS TACHYCARDIA POSSIBLE LEFT ATRIAL ENLARGEMENT NONSPECIFIC T-WAVE ABNORMALITY ABNORMAL RHYTHM ECG INTERPRETATION BASED ON A DEFAULT AGE OF 40 YEARS NO PREVIOUS TRACING DOCTOR: Jeff Mendosa Interpretating Date/Time 09/28/2017 10:45:36
[2017-09-28] MEDS: PIPERACIL-TAZO 3.375 GM PREMIX 50 ML IV SCH ×2 (11:57→17:15)
--- NOTE | 2017-09-28 12:20 | PD.CONS ---
HPI History of Present Illness This is a 57 year old male with hep c, cirrhosis, HIV, PUD, on plavix who presented to ER for "stomach problems." He has been having n/v for 2 days. Admits diarrhea for 2 days as well. ADmits abd pain in lower quadrants that is constant. Admits subjective fever. Denies sick contacts. Denies blood in stool and black tarry stool. He does not know why he takes plavix and has not had it for 2 days. Takes xifaxan. He had an EGD 08/28/[address] Bateman while admitted to [facility] for PNA. Egd finding was healing esophagitis, no evidence gross bleeding, small varices, portal gastropathy. Last colonoscopy with Dr Calvillo 1.5 y ago with finding polyps. He does have hep c s/p Harvoni. He has HIV and takes antivirals for that. He had an appointment at [facility] re liver transplant and is awaiting a response. (Mary Anne Dixon) PFSH Past Medical History CAD/ HIV positive/ hepatitis C s/p harvoni Past Surgical History pacemaker and stent placement. (Mary Anne Dixon) Coded Allergies: ondansetron (Verified Adverse Reaction, Intermediate, Nausea/Vomiting, 09/28) Family History lung cancer in parents. Social History no smoking or drinking. (Mary Anne Dixon) Review of Systems Constitutional: COMPLAINS OF: Fever Endocrine: DENIES: Polydipsia Eyes: DENIES: Blurred vision Respiratory: DENIES: Cough Cardiovascular: DENIES: Chest pain Gastrointestinal: COMPLAINS OF: Abdominal pain, Diarrhea, Nausea, Vomiting, DENIES: Black stools, Bloody stools, Hematemesis Genitourinary: DENIES: Hematuria Musculoskeletal: DENIES: Joint Swelling Integumentary: COMPLAINS OF: Jaundice Hematologic/lymphatic: DENIES: Bruising Immunologic/allergic: DENIES: Eczema Neurologic: DENIES: Abnormal gait Psychiatric: COMPLAINS OF: Confusion (Mary Anne Dixon) GI Exam Vitals I&O Vital Signs Date Time Temp Pulse Resp B/P (MAP) Pulse Ox O2 Delivery O2 Flow Rate FiO2 09/28/17 08:14 98.8 81 16 115/66 (82) 96 Room Air 09/28/17 05:48 84 18 146/75 (98) 99 Room Air 09/28/17 03:15 100.3 126 20 194/115 (141) 97 I/O 09/27/17 09/27/17 09/27/17 09/28/17 09/28/17 09/28/17 07:00 15:00 23:00 07:00 15:00 23:00 Intake Total 2000 ml 750 ml Balance 2000 ml 750 ml Intake IV Total 2000 ml 750 ml # Voids 1 Imaging Last Impressions Head CT 09/28/17 0500 Signed Impressions: Service Date/Time: Thursday, September 28, 2017 05:30 - CONCLUSION: No acute intracranial abnormality is identified. Juan Carlos Langley MD Chest X-Ray 09/28/17351 Signed Impressions: Service Date/Time: Thursday, September 28, 2017 04:21 - CONCLUSION: Small pleural-based opacities bilaterally could represent pleural thickening or small volume of pleural fluid. Otherwise, no acute finding is identified. Juan Carlos Langley MD Abdomen/Pelvis CT 09/28/17351 Signed Impressions: Service Date/Time: Thursday, September 28, 2017 05:33 - CONCLUSION: 1. Mild wall thickening and surrounding inflammation of the proximal sigmoid colon could represent a colitis. 2. There is left gastric lymphadenopathy from uncertain etiology. 3. Abnormal lobulated liver characteristic of cirrhosis. 4. There is right lower lobe atelectasis versus consolidation with adjacent pleural thickening. Juan Carlos Langley MD Laboratory Test 09/28/17 04:05 09/28/17 04:19 09/28/17 06:10 09/28/17 07:55 White Blood Count 13.2 TH/MM3 Red Blood Count 5.73 MIL/MM3 Hemoglobin 17.1 GM/DL Hematocrit 50.4 % Mean Corpuscular Volume 87.9 FL Mean Corpuscular Hemoglobin 29.9 PG Mean Corpuscular Hemoglobin Concent 34.0 % Red Cell Distribution Width 18.1 % Platelet Count 299 TH/MM3 Mean Platelet Volume 8.3 FL Neutrophils (%) (Auto) 78.5 % Lymphocytes (%) (Auto) 16.3 % Monocytes (%) (Auto) 4.8 % Eosinophils (%) (Auto) 0.1 % Basophils (%) (Auto) 0.3 % Neutrophils # (Auto) 10.3 TH/MM3 Lymphocytes # (Auto) 2.2 TH/MM3 Monocytes # (Auto) 0.6 TH/MM3 Eosinophils # (Auto) 0.0 TH/MM3 Basophils # (Auto) 0.0 TH/MM3 CBC Comment DIFF FINAL Differential Comment Prothrombin Time 11.7 SEC Prothromb Time International Ratio 1.2 RATIO Activated Partial Thromboplast Time 26.8 SEC Blood Urea Nitrogen 21 MG/DL Creatinine 1.84 MG/DL Random Glucose 177 MG/DL Total Protein 10.0 GM/DL Albumin 3.6 GM/DL Calcium Level 9.5 MG/DL Magnesium Level 2.3 MG/DL Alkaline Phosphatase 349 U/L Aspartate Amino Transf (AST/SGOT) 83 U/L Alanine Aminotransferase (ALT/SGPT) 37 U/L Total Bilirubin 1.5 MG/DL Sodium Level 141 MEQ/L Potassium Level 4.9 MEQ/L Chloride Level 113 MEQ/L Carbon Dioxide Level 16.7 MEQ/L Anion Gap 11 MEQ/L Estimat Glomerular Filtration Rate 38 ML/MIN Lactic Acid Level 2.4 mmol/L 1.2 mmol/L Total Creatine Kinase 103 U/L Creatine Kinase MB 4.6 NG/ML Troponin I 0.12 NG/ML C-Reactive Protein 1.74 MG/DL B-Type Natriuretic Peptide 174 PG/ML Lipase 151 U/L Salicylates Level LESS THAN 1.7 MG/DL Acetaminophen Level LESS THAN 2.0 MCG/ML Ethyl Alcohol Level LESS THAN 3 MG/DL Blood Gas Puncture Site LT RADIAL Blood Gas Patient Temperature 98.6 Blood Gas HCO3 18 mmol/L Blood Gas Base Excess -5.8 mmol/L Blood Gas Oxygen Saturation 94 % Arterial Blood pH 7.45 Arterial Blood Partial Pressure CO2 26 mmHg Arterial Blood Partial Pressure O2 78 mmHG Arterial Blood Oxygen Content 22.8 Vol % Arterial Blood Carboxyhemoglobin 1.0 % Arterial Blood Methemoglobin 0.5 % Blood Gas Hemoglobin 17.2 G/DL Oxygen Delivery Device ROOM AIR Blood Gas Inspired Oxygen 21 % Ammonia 44 MCMOL/L Test 09/28/17 10:30 Date/Time Source Procedure Growth Status 09/28/17 04:05 Blood Peripheral Aerobic Blood Culture Pending Received 09/28/17 04:05 Blood Peripheral Anaerobic Blood Culture Pending Received Physical Examination HEENT: PERRL; normocephalic; atraumatic; no jaundice. CHEST: CTA CARDIAC: tachy ABDOMEN: Soft, nondistended, diffuse TTP; no hepatosplenomegaly; bowel sounds are present in all four quadrants. EXTREMITIES: No clubbing, cyanosis, or edema. SKIN: Normal; no rash; no jaundice. CLIENT RETENTION SPECIALIST: No focal deficits; alert and oriented times three. (Mary Anne Dixon) Assessment and Plan Plan ASSESSMENT - n/v, diarrhea, abd pain - gastroenteritis vs unspecified colitis. per EMR he had rectal bleeding but he denied this to me. onset 2 d ago. recent hospitalization for PNA. Had EGD with Dr Bateman 08/28 rodriguez healing esophagitis, no evidence gross bleed, small varices, portal gastropathy. CT showed poss colitis, cirrhosis, and gastric lymphadenopathy. - leukocytosis - on zosyn - hx hep c s/p harvoni, cirrhosis, HIV PLAN - EGD in am - obtain consent - NPO after midnight - continue zosyn - stool studies, c diff pending - colonoscopy outpt vs inpt - pt cannot tolerate bowel prep at this time - xifaxan when eating/tolerating PO - further recs to follow pt seen by myself and Dr Ramirez and this note is on his behalf (Mary Anne Dixon) Physician Comments As above, seen with Katia. Will follow up with you. EGD in AM. Thank you for the consult. (David Ramirez MD) Mary Anne Dixon Sep 28, 2017 12:20 David Ramirez MD Sep 28, 2017 14:16
[2017-09-28 12:24] LABS: BACTERIA, URINE RARE /hpf; BILIRUBIN, URINE NEG (NEG); BLOOD, URINE NEG (NEG); GLUCOSE,URINE NEG (NEG); HYALINE CAST, URINE 69 /lpf (RARE); KETONE, URINE TRACE mg/dL (NEG); MUCUS URINE FEW /lpf (OCC); NITRITE,URINE NEG (NEG); PH, URINE 5.5 (5.0-8.5); SQUAMOUS EPITHELIAL CELL URINE <1 /hpf (0-5); URINE COLOR YELLOW (YELLW/STRAW); URINE LEUKOCYTE ESTERASE NEG (NEG)
[2017-09-28] MEDS ORDERED: ACETAMINOPHEN/HYDROcodone 325 MG/5 MG TAB PO PRN (12:45)
[2017-09-28] MEDS: MORPHINE SULFATE 2 MG/ML INJ IV PUSH PRN ×3 (13:35→21:42)
[2017-09-28 14:26] LABS: TROPONIN I 0.13 NG/ML (0.02-0.05)
[2017-09-28] MEDS ORDERED: TIZA4CAP3 PO (16:02)
[2017-09-28] MEDS ORDERED: ZANA2CAP PO (16:02)
[2017-09-28] MEDS: ALPRAZolam 1 MG TAB PO PRN (16:05)
[2017-09-28] MEDS ORDERED: EMTR1TAB4 PO (16:35)
[2017-09-28 17:05] LABS: TROPONIN I 0.17 NG/ML (0.02-0.05)
[2017-09-28] MEDS ORDERED: NON-FORMULARY DRUG (Emtricitabine-Tenofovir Alafenamide (Descovy) 1 TAB) PO SCH (17:15)
[2017-09-28] MEDS ORDERED: PROCHLORPERAZINE INJ 10 MG/2 ML VIAL IV PUSH PRN (17:15)
[2017-09-28] MEDS ORDERED: DOLUTEGRAVIR SODIUM 50 MG TAB PO ONE (18:00)
[2017-09-28] MEDS ORDERED: SODIUM CHLORID 0.9% 500 ML IV PRN (18:15)
[2017-09-28] MEDS ORDERED: METOPROLOL TARTRATE 25 MG TAB PO PRN (18:15)
[2017-09-28] MEDS ORDERED: POVIDONE IODINE 5% (ANTISEPSIS KIT) 4 APPLICATIONS EACH NARE PRN (18:15)
[2017-09-28] MEDS ORDERED: CHLORHEXIDINE GLUCONATE 2 % 1 PACK (2 CLOTHS) TOPICAL PRN (18:15)
[2017-09-28] MEDS ORDERED: LACTATED RINGER'S 1000 ML IV PRN (18:15)
[2017-09-28] MEDS: ENALAPRILAT 1.25 MG/ML VIAL IV PUSH PRN (18:18)
[2017-09-28] MEDS ORDERED: cloNIDine HCL 0.1 MG TAB PO ONE (19:15)
[2017-09-28] MEDS: SODIUM CHLORIDE 0.9% FLUSH 10 ML FLUSH IV FLUSH PRN (21:42)
[2017-09-29] VITALS (8 sets, daily range): BP systolic 133–222; BP diastolic 70–110; PULSE 68–92; RESP 16–20; TEMP 97.4–98.3; O2SAT 95–97
[2017-09-29] MEDS: PIPERACIL-TAZO 3.375 GM PREMIX 50 ML IV SCH ×4 (01:11→20:52)
[2017-09-29] MEDS: SODIUM CHLORIDE 0.9% FLUSH 10 ML FLUSH IV FLUSH PRN ×2 (02:02→15:29)
[2017-09-29] MEDS: MORPHINE SULFATE 2 MG/ML INJ IV PUSH PRN ×3 (02:02→15:29)
[2017-09-29] MEDS: SODIUM CHLOR 0.9% 1000 ML INJ 1,000 ML IV SCH ×2 (02:03→20:54)
[2017-09-29] MEDS: ENALAPRILAT 1.25 MG/ML VIAL IV PUSH PRN (03:25)
[2017-09-29] MEDS ORDERED: cloNIDine HCL 0.2 MG TAB PO ONE (05:15)
[2017-09-29 07:25] LABS: ALKALINE PHOSPHATASE 246 U/L (45-117); ALT (GPT) 32 U/L (12-78); AST (GOT) 72 U/L (15-37); BICARBONATE 18.7 MEQ/L (21.0-32.0); BLOOD UREA NITROGEN 21 MG/DL (7-18); CALCIUM 8.6 MG/DL (8.5-10.1); CHLORIDE 113 MEQ/L (98-107); CREATININE 1.17 MG/DL (0.60-1.30); GLOMERULAR FILTRATION RATE 64 ML/MIN (>89); GLUCOSE,RANDOM 106 MG/DL (74-106); SODIUM (NA) 143 MEQ/L (136-145); TOTAL BILIRUBIN ADULT 1.4 MG/DL (0.2-1.0); TOTAL PROTEIN 8.2 GM/DL (6.4-8.2)
--- NOTE | 2017-09-29 07:50 | HHI.PR ---
Subjective Remarks in no acute distress. still with some abdominal pain and nausea. no fever. no chest pain. BP trend noted. Objective Vitals Vital Signs Date Time Temp Pulse Resp B/P (MAP) Pulse Ox O2 Delivery O2 Flow Rate FiO2 09/29/17 06:08 97.4 92 16 189/110 (136) 95 09/29/17 04:58 98.3 80 17 222/109 (146) 97 09/29/17 02:07 15 09/29/17 01:28 98.0 78 16 201/110 (140) 97 09/28/17 20:25 99 16 213/105 (141) 97 09/28/17 18:57 220/110 (146) 09/28/17 18:51 115 24 214/128 (156) 96 09/28/17 16:37 98.7 106 24 220/104 (142) 95 09/28/17 15:24 84 17 159/87 (111) 97 09/28/17 12:20 98.9 78 18 153/85 (107) 99 Room Air 09/28/17 08:14 98.8 81 16 115/66 (82) 96 Room Air I/O 09/28/17 09/28/17 09/28/17 09/29/17 09/29/17 09/29/17 07:00 15:00 23:00 07:00 15:00 23:00 Intake Total 2000 ml 800 ml Output Total 300 ml Balance 2000 ml 800 ml -300 ml Intake IV Total 2000 ml 800 ml Output Urine Total 300 ml # Voids 1 Result Diagram: 09/28/17 0405 09/29/17 0550 Imaging Last Impressions Head CT 09/28/17 0500 Signed Impressions: Service Date/Time: Thursday, September 28, 2017 05:30 - CONCLUSION: No acute intracranial abnormality is identified. Juan Carlos Langley MD Chest X-Ray 09/28/17 5295 Signed Impressions: Service Date/Time: Thursday, September 28, 2017 04:21 - CONCLUSION: Small pleural-based opacities bilaterally could represent pleural thickening or small volume of pleural fluid. Otherwise, no acute finding is identified. Juan Carlos Langley MD Abdomen/Pelvis CT 09/28/17 5213 Signed Impressions: Service Date/Time: Thursday, September 28, 2017 05:33 - CONCLUSION: 1. Mild wall thickening and surrounding inflammation of the proximal sigmoid colon could represent a colitis. 2. There is left gastric lymphadenopathy from uncertain etiology. 3. Abnormal lobulated liver characteristic of cirrhosis. 4. There is right lower lobe atelectasis versus consolidation with adjacent pleural thickening. Juan Carlos Langley MD Objective Remarks GENERAL: This is a well-nourished, well-developed patient, in no apparent distress. CARDIOVASCULAR: Regular rate and regular rhythm without murmurs, gallops, or rubs. RESPIRATORY: Clear to auscultation. Breath sounds equal bilaterally. No wheezes , rales, or rhonchi. GASTROINTESTINAL: Abdomen soft, non-tender, nondistended. Normal, active bowel sounds MUSCULOSKELETAL: Extremities without clubbing, cyanosis, or edema. NEURO: Alert & Oriented x4 to person, place, time, situation. Moves all ext x4 Medications and IVs Inpatient Medications Acetaminophen (Tylenol) 650 mg ONCE ONCE PO Last administered on 09/28/17at 05: 30; Start 09/28/17 at 04:45; Stop 09/28/17 at 04:46; Status DC Acetaminophen/ Hydrocodone Bitart ([place] 5-325 Mg) 2 tab Q4H PRN PO PAIN 6-10 ; Start 09/28/17 at 12:45 Alprazolam (Xanax) 1 mg Q6H PRN PO ANXIETY Last administered on 09/28/17at 16:05 ; Start 09/28/17 at 06:45 Aspirin (Aspirin Chew) 81 mg DAILY CHEW ; Start 09/28/17 at 09:00 Bisacodyl (Dulcolax Supp) 10 mg DAILY PRN RECTAL SEVERE CONSITIPATION; Start at 06:45 Budesonide/ Formoterol Fumarate (Symbicort 80-4.5 Mcg Inh) 2 puff BID INH Last administered on 09/28/17at 09:10; Start 09/28/17 at 09:00 Carvedilol (Coreg) 3.125 mg BID PO Last administered on 09/28/17at 20:49; Start 09/28/17 at 09:00 Chlorhexidine Gluconate (Chlorhexidine 2% Cloth) 3 pack METAL ORGAN PIPE MAKER PRN TOPICAL SEE LABEL COMMENTS; Start 09/28/17 at 18:15; Stop 10/01/17 at 18:14 Clonidine (Catapres) 0.2 mg ONCE ONCE PO Last administered on 09/29/17at 05:18; Start 09/29/17 at 05:15; Stop 09/29/17 at 05:16; Status DC Clopidogrel Bisulfate (Plavix) 75 mg DAILY PO ; Start 09/28/17 at 09:00 Emtricitabine/ Tenofovir (Truvada 200-300 Mg) 1 tab DAILY PO ; Start 09/28/17 at 09:00 Enalaprilat (Vasotec Inj) 1.25 mg Q8H PRN IV PUSH SBP> OR = 180, DBP> OR = 100 Last administered on 09/29/17at 03:25; Start 09/28/17 at 17:15 Furosemide (Lasix) 20 mg DAILY PO ; Start 09/28/17 at 09:00 Lactated Ringer's 1,000 ml @ 30 mls/hr Q24H PRN IV SEE LABEL COMMENTS; Start at 18:15; Stop 10/01/17 at 18:14 Lactulose (Lactulose Liq) 30 ml DAILY PRN PO SEVERE CONSITIPATION; Start at 06:45 Lisinopril (Prinivil) 5 mg DAILY PO ; Start 09/28/17 at 09:00 Magnesium Hydroxide (Milk Of Magnesia Liq) 30 ml Q12H PRN PO Mild constipation ; Start 09/28/17 at 06:45 Metoprolol Tartrate (Lopressor) 25 mg METAL ORGAN PIPE MAKER PRN PO SEE LABEL COMMENTS; Start 09/28/17 at 18:15; Stop 10/01/17 at 18:14 Morphine Sulfate (Morphine Inj) 2 mg Q4H PRN IV PUSH BREAKTHROUGH PAIN Last administered on 09/29/17at 02:02; Start 09/28/17 at 12:45 Naloxone HCl (Narcan Inj) 0.4 mg UNSCH PRN IV PUSH SEE LABEL COMMENTS; Start at 06:45 Ondansetron HCl (Zofran Inj) 4 mg Q6H PRN IVP NAUSEA OR VOMITING; Start at 06:45; Stop 09/28/17 at 17:14; Status DC Pantoprazole Sodium (Protonix) 40 mg DAILY PO ; Start 09/28/17 at 09:00 Patient Own Medication PT OWN MED: DESCOVY... DAILY PO ; Start 09/29/17 at 09:00 Piperacillin Sod/ Tazobactam Sod 50 ml @ 100 mls/hr Q6H IV Last administered on 09/29/17at 05:18; Start 09/28/17 at 12:00 Povidone Iodine (Betadine 5% Antisepsis Kit) 1 applic METAL ORGAN PIPE MAKER PRN EACH NARE SEE LABEL COMMENTS; Start 09/28/17 at 18:15; Stop 10/01/17 at 18:14 Pravastatin Sodium (Pravachol) 10 mg DAILY PO ; Start 09/28/17 at 09:00 Prochlorperazine Edisylate (Compazine Inj) 5 mg Q8H PRN IV PUSH NAUSEA Last administered on 09/28/17at 18:24; Start 09/28/17 at 17:15 Senna/Docusate Sodium (Meghan-Colace) 1 tab BID PO Last administered on 09/28/17at 20:49; Start 09/28/17 at 09:00 Sennosides (Senokot) 17.2 mg Q12H PRN PO Moderate constipation; Start 09/28/17 at 06:45 Sodium Chloride 500 ml @ 30 mls/hr [id number] PRN IV SEE LABEL COMMENTS; Start 09/28/17 at 18:15; Stop 10/01/17 at 18:14 Sodium Chloride (NS Flush) 2 ml BID IV FLUSH ; Start 09/28/17 at 09:00 Vancomycin HCl 1000 mg/Sodium Chloride 250 ml @ 250 mls/hr ONCE ONCE IV Last administered on 09/28/17at 06:17; Start 09/28/17 at 06:00; Stop 09/28/17 at 06:59; Status DC A/P Problem List: (1) Colitis ICD Code: K52.9 - Noninfective gastroenteritis and colitis, unspecified Status: Acute Assessment and Plan A/P - sepsis -colitis - rectal bleed NPO for now- continue with IV antibiotics and supportive care with IV fluid, pain control and antiemetics as needed. stool for c-diff and C/S pending- GI consult appreciated and plan for EGD today. -renal insufficiency with unknown duration- likely acute due to dehydration- resolved. continue IV fluid and monitor the renal function. -hypertensive urgency- continue coreg and lisinopril- will give one dose of Procardia today if BP doesn't improve. continue with vasotec prn. will monitor and adjust the regimen as needed. -mild elevation of troponin with history of CAD- denies chest pain and no acute ST-T changes on EKG continue aspirin and plavix - ( with close monitoring for active bleed ) , coreg, lisinopril and statin- serial troponin stable. -elevated LFT's- with history of hepatitis C- will monitor -HIV -positive- on anti- retroviral meds -DVT prophylaxis ; SCD's Discharge Planning awaiting GI work-up. José Bustamante MD Sep 29, 2017 07:50
[2017-09-29] MEDS: BUDESONIDE-FORMOTEROL 80/4.5 MCG INHALER INH SCH ×2 (08:13→20:51)
[2017-09-29] MEDS: PT:DESCOVY PO SCH (08:14)
[2017-09-29] MEDS: EMTRICITABINE/TENOFOVIR 200 MG/300 MG TAB PO SCH (08:15)
[2017-09-29] MEDS: LISINOPRIL 5 MG TAB PO SCH (08:15)
[2017-09-29] MEDS: ASPIRIN 81 MG CHEW TAB CHEW SCH (08:15)
[2017-09-29] MEDS: DOLUTEGRAVIR SODIUM 50 MG TAB PO SCH (08:15)
[2017-09-29] MEDS: FUROSEMIDE 20 MG TAB PO SCH (08:15)
[2017-09-29] MEDS: CLOPIDOGREL 75 MG TAB PO SCH (08:15)
[2017-09-29] MEDS: DOCUSATE SODIUM 50 MG/SENNA 8.6 MG TAB PO SCH ×2 (08:15→20:52)
[2017-09-29] MEDS: CARVEDILOL 3.125 MG TAB PO SCH ×2 (08:15→20:52)
[2017-09-29] MEDS: PRAVASTATIN SOD 10 MG TAB PO SCH (08:15)
[2017-09-29] MEDS: PANTOPRAZOLE SOD 40 MG DELAYED RELEASE TAB PO SCH (08:15)
[2017-09-29] MEDS: SODIUM CHLORIDE 0.9% FLUSH 10 ML FLUSH IV FLUSH SCH ×2 (08:16→20:52)
[2017-09-29 09:04] LABS: BASOPHIL # 0.1 TH/MM3 (0-0.2); BASOPHIL % 0.3 % (0.0-2.0); EOSINOPHIL % 0.1 % (0.0-4.0); HEMATOCRIT 49.4 % (39.0-51.0); HEMOGLOBIN 16.7 GM/DL (13.0-17.0); LYMPH % 23.4 % (9.0-44.0); MEAN CELL VOLUME 88.8 FL (80.0-100.0); MEAN CORPUSCULAR HGB CONC 33.8 % (32.0-36.0); MEAN PLATELET VOLUME 7.7 FL (7.0-11.0); MONO % 10.4 % (0.0-8.0); MONOCYTE # 2.2 TH/MM3 (0-0.9); NEUT % 65.8 % (16.0-70.0); PLATELET COUNT 291 TH/MM3 (150-450); RED BLOOD COUNT 5.56 MIL/MM3 (4.50-5.90); RED CELL DISTRIBUTION WIDTH 17.9 % (11.6-17.2); WHITE BLOOD COUNT 21.3 TH/MM3 (4.0-11.0)
[2017-09-29 09:45] LABS: OVALOCYTES 1+ (NORMAL)
[2017-09-29] MEDS ORDERED: LIDOCAINE HCL 1% PF 5 ML SYRINGE OTHER ONE (12:00)
[2017-09-29] MEDS ORDERED: PROPOFOL 200 MG/20 ML AMP IV ONE (12:00)
[2017-09-29] MEDS ORDERED: PHENYLEPH/NS 1000 MCG/10 ML SYR IV ONE (12:00)
--- NOTE | 2017-09-29 12:42 | GIPROC ---
[facility] [address] [facility]. [facility], [address] EGD PROCEDURE REPORT EXAM DATE: 09/29/2017 PATIENT NAME: Gigi Vincent MR #: [id number] BIRTHDATE: 1960 ATTENDING: David Ramirez MD ORDER #: [id number] WORK FORCE ADVISOR: Estefania Mo and Dana Patricio STATUS: inpatient INDICATIONS: The patient is a 57 yr old male here for an EGD due to abdominal pain and nausea PROCEDURE PERFORMED: EGD w/ biopsy MEDICATIONS: None and Per Anesthesia. TOPICAL ANESTHETIC: none CONSENT: The patient understands the risks and benefits of the procedure and understands that these risks include, but are not limited to: sedation, allergic reaction, infection, perforation and/or bleeding. Alternative means of evaluation and treatment include, among others: physical exam, x-rays, and/or surgical intervention. The patient elects to proceed with this endoscopic procedure. medical equipment was checked for proper function. Hand hygiene and appropriate measures for infection prevention was taken. After the risks, benefits and alternatives of the procedure were thoroughly explained, Informed consent was verified, confirmed and timeout was successfully executed by the treatment team. The patient was anesthetized with topical anesthesia and the [id number] (Pedi C) endoscope was introduced through the mouth and advanced to the second portion of the duodenum. Retroflexion was performed and was normal The gastroscope was then slowly withdrawn and removed. ESOPHAGUS: There was a single small varix in the distal esophagus. The varices were not bleeding. STOMACH: There was mild erosive gastropathy in the gastric fundus. Multiple biopsies were performed using cold forceps. Sample sent for histology. DUODENUM: Mild duodenal inflammation was found in the duodenal bulb. The duodenal mucosa appeared normal in the 2nd part of the duodenum. ADVERSE EVENTS: There were no complications. IMPRESSIONS: 1. Prominant esophageal vessel suggestive of early varices. 2. There was mild gastropathy and thick gastric folds mainly in the gastric fundus; multiple biopsies were performed 3. Duodenal inflammation was found in the duodenal bulb 4. Normal duodenal mucosa in the 2nd part of the duodenum 5. Retroflexion was performed and was normal RECOMMENDATIONS: 1. Await biopsy results. Biopsy results will not be ready for 7-10 days. If you don't hear from us in two weeks, call our office for biopsy results. 2. Continue PPI PATIENT CONDITION: stable DISPOSITION: Observation REPEAT EXAM: NONE David Ramirez MD eSigned: David Ramirez MD 09/29/2017 12:42 PM cc: PATIENT NAME: Gigi Vincent MR#: [id number]
[2017-09-29] MEDS ORDERED: *ENALAPRILAT 1.25 MG/ML VIAL PERIprocedural Use ONLY ONE ×2 (12:54→13:19)
[2017-09-29] MEDS ORDERED: *LABETALOL HCL 100 MG/20 ML VIAL PERIprocedural Use ONLY ONE (12:54)
[2017-09-29] MEDS ORDERED: NIFEdipine 30 MG SUSTAINED RELEASE TAB PO ONE (14:00)
[2017-09-29] MEDS ORDERED: DO NOT ADM ANY ANTICOAGULANT DRUGS PRN (15:30)
[2017-09-29] MEDS: ALPRAZolam 1 MG TAB PO PRN (19:24)
[2017-09-29] MEDS: ACETAMINOPHEN/HYDROcodone 325 MG/5 MG TAB PO PRN (20:53)
--- NOTE | 2017-09-29 21:34 | EKG ---
Date Performed: 09/28/2017 Time Performed: 16:50:29 PTAGE: 57 years EKG: Sinus rhythm WITH OCCASIONAL SUPRAVENTRICULAR PREMATURE COMPLEXES NONSPECIFIC T-WAVE ABNORMALITY BORDERLINE ECG PREVIOUS TRACING : 09/28/2017 11.27 No significant change from previous tracing noted. DOCTOR: Moises Marie Interpretating Date/Time 09/29/2017 21:32:34
--- NOTE | 2017-09-29 21:51 | EKG ---
Date Performed: 09/28/2017 Time Performed: 11:27:27 PTAGE: 57 years EKG: Sinus rhythm WITH SINUS ARRHYTHMIA NONSPECIFIC T-WAVE ABNORMALITY BORDERLINE ECG PREVIOUS TRACING : 09/28/2017 03.32 No significant change from previous tracing noted. DOCTOR: Moises Marie Interpretating Date/Time 09/29/2017 21:50:58
[2017-09-30] MEDS: ACETAMINOPHEN/HYDROcodone 325 MG/5 MG TAB PO PRN ×4 (02:14→21:54)
[2017-09-30] MEDS: PIPERACIL-TAZO 3.375 GM PREMIX 50 ML IV SCH ×2 (02:15→10:16)
[2017-09-30] MEDS: LACTULOSE SYRUP 20 GM/30 ML CUP PO PRN (04:53)
[2017-09-30] MEDS: SODIUM CHLOR 0.9% 1000 ML INJ 1,000 ML IV SCH (04:53)
[2017-09-30 04:56] VITALS: BP 152/78; PULSE 84; RESP 18; TEMP 98.1; O2SAT 94
[2017-09-30 08:52] VITALS: BP 155/85; PULSE 87; RESP 20; TEMP 98; O2SAT 94
[2017-09-30] MEDS: DOCUSATE SODIUM 50 MG/SENNA 8.6 MG TAB PO SCH ×2 (10:01→21:53)
[2017-09-30] MEDS: ASPIRIN 81 MG CHEW TAB CHEW SCH (10:01)
[2017-09-30] MEDS: PANTOPRAZOLE SOD 40 MG DELAYED RELEASE TAB PO SCH (10:01)
[2017-09-30] MEDS: FUROSEMIDE 20 MG TAB PO SCH (10:01)
[2017-09-30] MEDS: CARVEDILOL 3.125 MG TAB PO SCH ×2 (10:01→21:54)
[2017-09-30] MEDS: EMTRICITABINE/TENOFOVIR 200 MG/300 MG TAB PO SCH (10:02)
[2017-09-30] MEDS: CLOPIDOGREL 75 MG TAB PO SCH (10:02)
[2017-09-30] MEDS: LISINOPRIL 5 MG TAB PO SCH (10:02)
[2017-09-30] MEDS: PRAVASTATIN SOD 10 MG TAB PO SCH (10:02)
[2017-09-30] MEDS: SODIUM CHLORIDE 0.9% FLUSH 10 ML FLUSH IV FLUSH SCH ×2 (10:02→21:00)
[2017-09-30] MEDS: PT:DESCOVY PO SCH (10:03)
[2017-09-30] MEDS: BUDESONIDE-FORMOTEROL 80/4.5 MCG INHALER INH SCH ×2 (10:03→22:19)
[2017-09-30] MEDS: DOLUTEGRAVIR SODIUM 50 MG TAB PO SCH (10:14)
[2017-09-30 12:25] VITALS: BP 159/82; PULSE 79; RESP 20; TEMP 98.2; O2SAT 95
[2017-09-30] MEDS ORDERED: CARV3.125 PO (15:38)
--- NOTE | 2017-09-30 15:40 | HHI.DCPOC ---
Discharge Care Plan Diagnosis: (1) Dehydration (2) Acute kidney injury (3) Esophageal varices without bleeding (4) Duodenitis without bleeding Goals to Promote Your Health * To prevent worsening of your condition and complications * To maintain your health at the optimal level Directions to Meet Your Goals Take your medications as prescribed Follow your dietary instruction Follow activity as directed Keep your appointments as scheduled Take your immunizations and boosters as scheduled If your symptoms worsen call your PCP, if no PCP go to Urgent Care Center or Emergency Room Smoking is Dangerous to Your Health. Avoid second hand smoke Call the 24-hour hour crisis hotline for domestic abuse at Ricco Arrington MD Sep 30, 2017 15:40
--- NOTE | 2017-09-30 15:44 | HHI.DS ---
Discharge Summary Admission Date Sep 28, 2017 at 06:15 Discharge Date: Oct 03, 2017 Admitting Diagnosis Dehydration, intractable vomiting (1) Duodenitis without bleeding ICD Code: K29.80 - Duodenitis without bleeding (2) Esophageal varices without bleeding ICD Code: I85.00 - Esophageal varices without bleeding (3) Acute kidney injury ICD Code: N17.9 - Acute kidney failure, unspecified (4) Dehydration ICD Code: E86.0 - Dehydration Status: Acute Procedures EGD showing Prominant esophageal vessel suggestive of early varices. 2. There was mild gastropathy and thick gastric folds mainly in the gastric fundus; multiple biopsies were performed 3. Duodenal inflammation was found in the duodenal bulb Brief History - From Admission patient is a 57 y/o male with history of CAD, hepatitis C, cirrhosis, HIV positive, PUD who presented to ER with abdominal pain. he says that he was admitted to [facility] about a month ago and was treated with pneumonia. he had EGD at the time for GI bleed which showed esophageal ulcer. he says that he's had abdominal pain for about a couple of weeks. pain is more or less generalized and constant. pain is moderate to severe in intensity. it was associated with nausea and emesis. he's also complaining of diarrhea. he says that his stool is mixed with streaks of blood. his last colonoscopy was two years which showed some polys-per the patient.he reports some fever and chills at home. he denies any chest pain. CBC/BMP: 09/29/17 0824 09/29/17 0550 Significant Findings Laboratory Tests Test 09/28/17 04:05 09/28/17 04:19 09/28/17 06:10 09/28/17 07:55 White Blood Count 13.2 TH/MM3 (4.0-11.0) Hemoglobin 17.1 GM/DL (13.0-17.0) Red Cell Distribution Width 18.1 % (11.6-17.2) Neutrophils (%) (Auto) 78.5 % (16.0-70.0) Neutrophils # (Auto) 10.3 TH/MM3 (1.8-7.7) Prothrombin Time 11.7 SEC (9.8-11.6) Blood Urea Nitrogen 21 MG/DL (7-18) Creatinine 1.84 MG/DL (0.60-1.30) Random Glucose 177 MG/DL (74-106) Total Protein 10.0 GM/DL (6.4-8.2) Alkaline Phosphatase 349 U/L (45-117) Aspartate Amino Transf (AST/SGOT) 83 U/L (15-37) Total Bilirubin 1.5 MG/DL (0.2-1.0) Chloride Level 113 MEQ/L (98-107) Carbon Dioxide Level 16.7 MEQ/L (21.0-32.0) Estimat Glomerular Filtration Rate 38 ML/MIN (>89) Lactic Acid Level 2.4 mmol/L (0.4-2.0) Creatine Kinase MB 4.6 NG/ML (0.5-3.6) Troponin I 0.12 NG/ML (0.02-0.05) C-Reactive Protein 1.74 MG/DL (0.00-0.30) B-Type Natriuretic Peptide 174 PG/ML (0-100) Salicylates Level LESS THAN 1.7 MG/DL Acetaminophen Level LESS THAN 2.0 MCG/ML Blood Gas HCO3 18 mmol/L (22-26) Blood Gas Base Excess -5.8 mmol/L (-2-2) Arterial Blood pH 7.45 (7.380-7.420) Arterial Blood Partial Pressure CO2 26 mmHg (38-42) Arterial Blood Oxygen Content 22.8 Vol % (12.0-20.0) Blood Gas Hemoglobin 17.2 G/DL (12.0-16.0) Ammonia 44 MCMOL/L (11-32) Test 09/28/17 11:45 09/28/17 13:45 09/28/17 16:15 09/29/17 05:50 Urine Turbidity HAZY (CLEAR) Urine Specific [place] 1.047 (1.002-1.035) Urine Protein 100 mg/dL (NEG-TRACE) Urine Ketones TRACE mg/dL (NEG) Urine Bacteria RARE /hpf (NONE) Urine Mucus FEW /lpf (OCC) Urine Opiates Screen POS (NEG) Urine Benzodiazepines Screen POS (NEG) Troponin I 0.13 NG/ML (0.02-0.05) 0.17 NG/ML (0.02-0.05) Blood Urea Nitrogen 21 MG/DL (7-18) Albumin 3.0 GM/DL (3.4-5.0) Alkaline Phosphatase 246 U/L (45-117) Aspartate Amino Transf (AST/SGOT) 72 U/L (15-37) Total Bilirubin 1.4 MG/DL (0.2-1.0) Chloride Level 113 MEQ/L (98-107) Carbon Dioxide Level 18.7 MEQ/L (21.0-32.0) Estimat Glomerular Filtration Rate 64 ML/MIN (>89) Test 09/29/17 08:24 White Blood Count 21.3 TH/MM3 (4.0-11.0) Red Cell Distribution Width 17.9 % (11.6-17.2) Monocytes (%) (Auto) 10.4 % (0.0-8.0) Neutrophils # (Auto) 14.0 TH/MM3 (1.8-7.7) Lymphocytes # (Auto) 5.0 TH/MM3 (1.0-4.8) Monocytes # (Auto) 2.2 TH/MM3 (0-0.9) Ovalocytes 1+ (NORMAL) Imaging Last Impressions Myocardial Perfusion Scan Nuc Med 10/02/17 0600 Signed Impressions: Service Date/Time: Monday, October 02, 2017 12:58 - CONCLUSION: 1. Mild reversibility at the inferolateral wall which may indicate mild ischemia. 2. No wall motion abnormalities with the ejection fraction 65%% RISK CATEGORY: Intermediate (1-3%% Annual Mortality Rate) Eric Pereira MD Head CT 09/28/17 0500 Signed Impressions: Service Date/Time: Thursday, September 28, 2017 05:30 - CONCLUSION: No acute intracranial abnormality is identified. Juan Carlso Langley MD Chest X-Ray 09/28/17 7946 Signed Impressions: Service Date/Time: Thursday, September 28, 2017 04:21 - CONCLUSION: Small pleural-based opacities bilaterally could represent pleural thickening or small volume of pleural fluid. Otherwise, no acute finding is identified. Juan Carlos Langley MD Abdomen/Pelvis CT 09/28/17 9800 Signed Impressions: Service Date/Time: Thursday, September 28, 2017 05:33 - CONCLUSION: 1. Mild wall thickening and surrounding inflammation of the proximal sigmoid colon could represent a colitis. 2. There is left gastric lymphadenopathy from uncertain etiology. 3. Abnormal lobulated liver characteristic of cirrhosis. 4. There is right lower lobe atelectasis versus consolidation with adjacent pleural thickening. Juan Carlos Langley MD Last Impressions Head CT 09/28/17 0500 Signed Impressions: Service Date/Time: Thursday, September 28, 2017 05:30 - CONCLUSION: No acute intracranial abnormality is identified. Juan Carlos Langley MD Chest X-Ray [id number]/17351 Signed Impressions: Service Date/Time: Thursday, September 28, 2017 04:21 - CONCLUSION: Small pleural-based opacities bilaterally could represent pleural thickening or small volume of pleural fluid. Otherwise, no acute finding is identified. Juan Carlos Langley MD Abdomen/Pelvis CT 09/28/17 Signed Impressions: Service Date/Time: Thursday, September 28, 2017 05:33 - CONCLUSION: 1. Mild wall thickening and surrounding inflammation of the proximal sigmoid colon could represent a colitis. 2. There is left gastric lymphadenopathy from uncertain etiology. 3. Abnormal lobulated liver characteristic of cirrhosis. 4. There is right lower lobe atelectasis versus consolidation with adjacent pleural thickening. Juan Carlos Langley MD PE at Discharge Patient lying in bed, awake, alert, no acute distress Abdomen soft, nontender nondistended, normoactive BS Pt update on day of discharge Tolerating p.o. intake well with no further abdominal pain, no further diarrhea , stool is formed Hospital Course Patient was admitted. Had EGD performed by gastroenterology, showed signs of very mild early esophageal varices and duodenitis. Blood counts remained stable , and was tolerating p.o. intake well. Patient did have elevated troponins during the stay which was attributed largely to hypertensive emergency with renal dysfunction; had a perfusion scan done which showed mild reversible ischemia. 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 Patient has met maximal benefit from hospitalization is clinically stable for discharge. Pt Condition on Discharge: Stable Discharge Disposition: Discharge Home Discharge Time: <= 30 minutes Discharge Instructions Follow up Referrals: Gastroenterology - 2 Weeks with David Ramirez MD PCP Follow-up - 1 Week New Medications: Carvedilol (Carvedilol) 6.25 Mg Tab 6.25 MG PO BID, #60 TAB 0 Refills Changed Medications: Lisinopril (Lisinopril) 5 Mg Tab 10 MG PO BID for Blood Pressure Management, #120 TAB 0 Refills (Changed from: 5 MG; DAILY; 30) Continued Medications: Alprazolam (Alprazolam) 1 Mg Tab 1 MG PO Q6H PRN for ANXIETY, TAB 0 Refills Aspirin (Aspirin) 81 Mg Chew 81 MG CHEW DAILY, TAB 0 Refills Clopidogrel (Clopidogrel) 75 Mg Tab 75 MG PO DAILY for Blood Clot Prevention, #30 TAB 0 Refills Dolutegravir (Tivicay) 50 Mg Tab 50 MG PO DAILY for Mgmt Viral Infection, #30 TAB 0 Refills Emtricitabine-Tenofovir Alafenamide (Descovy) 200-25 mg Tab 1 TAB PO DAILY for Mgmt Viral Infection, #30 TAB 0 Refills Fluticasone-Salmeterol Inh (Advair Diskus Inh) 100-50 Mcg/Blist Aer 1 PUFF INH BID for Asthma Management, #1 INHALER 0 Refills Rinse mouth after use. Furosemide (Lasix) 20 Mg Tab 20 MG PO DAILY, #30 TAB 0 Refills Lactulose Liq (Lactulose Liq) 10 Gm/15 Ml Soln 30 ML PO Q6H, ML 0 Refills Omeprazole (Omeprazole) 40 Mg Cap 40 MG PO DAILY, #30 CAP 0 Refills Rifaximin (Xifaxan) 200 Mg Tab 200 MG PO BID for Diarrhea, #42 TAB 0 Refills Simvastatin (Simvastatin) 5 Mg Tab 5 MG PO DAILY for Cholesterol Management, #30 TAB 0 Refills Tizanidine (Tizanidine) 4 Mg Cap 4 MG PO TID for Muscle Spasm, CAP 0 Refills Four times a day. Discontinued Medications: Carvedilol (Carvedilol) 3.125 Mg Tab 3.125 MG PO DAILY, #60 TAB 0 Refills Ricco Arrington MD Sep 30, 2017 15:44
[2017-09-30 17:06] LABS: ALBUMIN 3.3 GM/DL (3.4-5.0); AST (GOT) 92 U/L (15-37); BICARBONATE 25.6 MEQ/L (21.0-32.0); BLOOD UREA NITROGEN 13 MG/DL (7-18); CALCIUM 8.6 MG/DL (8.5-10.1); CHLORIDE 107 MEQ/L (98-107); CREATININE 0.92 MG/DL (0.60-1.30); GLOMERULAR FILTRATION RATE 84 ML/MIN (>89); GLUCOSE,RANDOM 78 MG/DL (74-106); SODIUM (NA) 140 MEQ/L (136-145)
[2017-09-30 17:07] LABS: ALT (GPT) 44 U/L (12-78)
[2017-09-30 17:11] LABS: ALKALINE PHOSPHATASE 241 U/L (45-117); TOTAL BILIRUBIN ADULT 1.3 MG/DL (0.2-1.0); TOTAL PROTEIN 7.8 GM/DL (6.4-8.2); TROPONIN I 0.13 NG/ML (0.02-0.05)
[2017-09-30] MEDS ORDERED: CARV6.252 PO (17:20)
[2017-09-30 17:26] LABS: AUTOMATED NEUTROPHIL # 6.6 TH/MM3 (1.8-7.7); BASOPHIL # 0.1 TH/MM3 (0-0.2); BASOPHIL % 0.9 % (0.0-2.0); EOSINOPHIL # 0.3 TH/MM3 (0-0.4); EOSINOPHIL % 2.1 % (0.0-4.0); HEMATOCRIT 41.2 % (39.0-51.0); HEMOGLOBIN 14.7 GM/DL (13.0-17.0); LYMPH % 29.4 % (9.0-44.0); LYMPHOCYTE # 3.7 TH/MM3 (1.0-4.8); MEAN CELL VOLUME 87.1 FL (80.0-100.0); MEAN CORPUSCULAR HEMOGLOBIN 31.1 PG (27.0-34.0); MEAN CORPUSCULAR HGB CONC 35.7 % (32.0-36.0); MEAN PLATELET VOLUME 9.9 FL (7.0-11.0); MONO % 14.5 % (0.0-8.0); MONOCYTE # 1.8 TH/MM3 (0-0.9); NEUT % 53.1 % (16.0-70.0); PLATELET COUNT 427 TH/MM3 (150-450); RED BLOOD COUNT 4.74 MIL/MM3 (4.50-5.90); RED CELL DISTRIBUTION WIDTH 17.5 % (11.6-17.2); WHITE BLOOD COUNT 12.5 TH/MM3 (4.0-11.0)
[2017-09-30 17:28] VITALS: BP 165/85; PULSE 93; RESP 20; TEMP 97.4; O2SAT 95
[2017-09-30 20:19] VITALS: BP 169/92; PULSE 86; RESP 20; TEMP 98.1; O2SAT 95
[2017-09-30 23:44] VITALS: BP 156/94; PULSE 84; RESP 18; TEMP 98.1; O2SAT 95
[2017-10-01 03:44] VITALS: BP 171/97; PULSE 91; RESP 20; O2SAT 96
[2017-10-01] MEDS: LACTULOSE SYRUP 20 GM/30 ML CUP PO PRN (05:19)
[2017-10-01] MEDS: ACETAMINOPHEN/HYDROcodone 325 MG/5 MG TAB PO PRN ×4 (05:19→17:52)
--- NOTE | 2017-10-01 07:54 | HHI.PR ---
Subjective Remarks LATE ENTRY for DOS 09/30/17. RN denies any deterioration since last night. Pt himself says his abd and chest pain is much better. walking to restroom w/ no worsening symptoms. Objective Vital Signs Date Time Temp Pulse Resp B/P (MAP) Pulse Ox O2 Delivery O2 Flow Rate FiO2 10/01/17 03:44 91 20 171/97 (121) 96 09/30/17 23:44 98.1 84 18 156/94 (114) 95 09/30/17 20:19 98.1 86 20 169/92 (117) 95 09/30/17 17:28 97.4 93 20 165/85 (111) 95 09/30/17 12:25 98.2 79 20 159/82 (107) 95 09/30/17 08:52 98.0 87 20 155/85 (108) 94 I/O 09/30/17 09/30/17 09/30/17 10/01/17 10/01/17 10/01/17 07:00 15:00 23:00 07:00 15:00 23:00 Intake Total 1050 ml 50 ml Output Total 400 ml 275 ml Balance 1050 ml -350 ml -275 ml Intake IV Total 1050 ml 50 ml Output Urine Total 400 ml 275 ml # Voids 5 4 # Bowel Movements 0 Result Diagram: 09/30/17 1633 09/30/17 1633 Objective Remarks abd soft, NT, ND hr rrr, no murmurs A/P Assessment and Plan A/P sepsis - resolved, blood cultures negative. likely a viral colitis, stopping abx given lack of fevers and improvement in PO intake. upper GI bleed, s/p EGD w/ findings of EGD showing Prominant esophageal vessel suggestive of early varices and duodenitis. persistently elevated troponin w/ hx of CAD and stenting - despite correction of RF and near normalization of BPs trop still elevated. Continue ASA and plavix and statin. discussed with cardiology who will be consulted. hypertensive urgency- doubling Coreg dose, continue lisinopril elevated LFT's- with history of hepatitis C- will monitor HIV -positive- on anti- retroviral meds DVT prophylaxis; SCD's Discharge Planning awaiting cards input and clearance for discharge. Ricco Arrington MD Oct 01, 2017 07:54
[2017-10-01] MEDS: LISINOPRIL 5 MG TAB PO SCH (09:29)
[2017-10-01] MEDS: CARVEDILOL 6.25 MG TAB PO SCH ×2 (09:29→22:47)
[2017-10-01] MEDS: PRAVASTATIN SOD 10 MG TAB PO SCH (09:29)
[2017-10-01] MEDS: EMTRICITABINE/TENOFOVIR 200 MG/300 MG TAB PO SCH (09:29)
[2017-10-01] MEDS: DOLUTEGRAVIR SODIUM 50 MG TAB PO SCH (09:29)
[2017-10-01] MEDS: SODIUM CHLORIDE 0.9% FLUSH 10 ML FLUSH IV FLUSH SCH ×2 (09:30→22:47)
[2017-10-01] MEDS: ASPIRIN 81 MG CHEW TAB CHEW SCH (09:30)
[2017-10-01] MEDS: BUDESONIDE-FORMOTEROL 80/4.5 MCG INHALER INH SCH ×2 (09:30→22:47)
[2017-10-01] MEDS: CLOPIDOGREL 75 MG TAB PO SCH (09:30)
[2017-10-01] MEDS: DOCUSATE SODIUM 50 MG/SENNA 8.6 MG TAB PO SCH (09:31)
[2017-10-01] MEDS: PT:DESCOVY PO SCH (09:31)
[2017-10-01] MEDS: PANTOPRAZOLE SOD 40 MG DELAYED RELEASE TAB PO SCH (09:31)
[2017-10-01] MEDS: FUROSEMIDE 20 MG TAB PO SCH (09:31)
[2017-10-01 10:10] VITALS: BP 184/91; PULSE 88; RESP 18; TEMP 97.6; O2SAT 98
--- NOTE | 2017-10-01 11:02 | HHI.PR ---
Subjective Remarks Follow-up nausea, vomiting diarrhea. States he vomited after breakfast not witnessed. Denies abdominal pain. Reports of loose stools because of lactulose. No chest pain. Discussed with nursing Objective Vitals Vital Signs Date Time Temp Pulse Resp B/P (MAP) Pulse Ox O2 Delivery O2 Flow Rate FiO2 10/01/17 10:10 97.6 88 18 184/91 (122) 98 10/01/17 03:44 91 20 171/97 (121) 96 09/30/17 23:44 98.1 84 18 156/94 (114) 95 09/30/17 20:19 98.1 86 20 169/92 (117) 95 09/30/17 17:28 97.4 93 20 165/85 (111) 95 09/30/17 12:25 98.2 79 20 159/82 (107) 95 I/O 09/30/17 09/30/17 09/30/17 10/01/17 10/01/17 10/01/17 07:00 15:00 23:00 07:00 15:00 23:00 Intake Total 1050 ml 50 ml Output Total 400 ml 275 ml Balance 1050 ml -350 ml -275 ml Intake IV Total 1050 ml 50 ml Output Urine Total 400 ml 275 ml # Voids 5 4 # Bowel Movements 0 Result Diagram: 09/30/17 1633 09/30/17 1633 Imaging Last Impressions Head CT 09/28/17 0500 Signed Impressions: Service Date/Time: Thursday, September 28, 2017 05:30 - CONCLUSION: No acute intracranial abnormality is identified. Juan Carlos Langley MD Chest X-Ray 09/28/17 666 Signed Impressions: Service Date/Time: Thursday, September 28, 2017 04:21 - CONCLUSION: Small pleural-based opacities bilaterally could represent pleural thickening or small volume of pleural fluid. Otherwise, no acute finding is identified. Juan Carlos Langley MD Abdomen/Pelvis CT 09/28/17 [id number] Signed Impressions: Service Date/Time: Thursday, September 28, 2017 05:33 - CONCLUSION: 1. Mild wall thickening and surrounding inflammation of the proximal sigmoid colon could represent a colitis. 2. There is left gastric lymphadenopathy from uncertain etiology. 3. Abnormal lobulated liver characteristic of cirrhosis. 4. There is right lower lobe atelectasis versus consolidation with adjacent pleural thickening. Juan Carlos Langley MD Objective Remarks GENERAL: Well-developed and well-nourished. No signs of dehydration SKIN: Warm and dry. CARDIOVASCULAR: Regular rate and rhythm. RESPIRATORY: No accessory muscle use. Clear to auscultation. Breath sounds equal bilaterally. GASTROINTESTINAL: Abdomen soft, non-tender, nondistended. MUSCULOSKELETAL: Extremities without clubbing, cyanosis, or edema. No obvious deformities. NEUROLOGICAL: Awake and alert. No obvious cranial nerve deficits. Motor grossly within normal limits. Five out of 5 muscle strength in the arms and legs. Normal speech. Procedures EGD showing Prominant esophageal vessel suggestive of early varices. 2. There was mild gastropathy and thick gastric folds mainly in the gastric fundus; multiple biopsies were performed 3. Duodenal inflammation was found in the duodenal bulb A/P Problem List: (1) Duodenitis without bleeding ICD Code: K29.80 - Duodenitis without bleeding (2) Esophageal varices without bleeding ICD Code: I85.00 - Esophageal varices without bleeding (3) Acute kidney injury ICD Code: N17.9 - Acute kidney failure, unspecified (4) Dehydration ICD Code: E86.0 - Dehydration Status: Acute Assessment and Plan Sepsis - resolved, blood cultures negative. likely a viral colitis, stopping abx given lack of fevers and improvement in PO intake. Upper GI bleed, s/p EGD w/ findings of EGD showing Prominent esophageal vessel suggestive of early varices and duodenitis. Patient reports of continued vomiting but not witnessed. Discussed with RN will monitor. Continue PPI Persistently elevated troponin w/ hx of CAD and stenting - despite correction of RF and near normalization of BPs trop still elevated. Continue ASA, plavix, statin and BB. Patient for stress test normal Hypertensive urgency- doubling Coreg dose, continue lisinopril. Improving elevated LFT's- with history of hepatitis C- will monitor HIV -positive- on anti- retroviral meds DVT prophylaxis; SCD's Discharge Planning Discharge when cleared by cardiology Romeo Ozuna MD Oct 01, 2017 11:02
[2017-10-01 12:44] VITALS: BP 123/73; PULSE 77; RESP 18; TEMP 97.8; O2SAT 97
[2017-10-01] MEDS: SODIUM CHLOR 0.9% 1000 ML INJ 1,000 ML IV SCH (13:40)
[2017-10-01] MEDS ORDERED: POTASSIUM CHLORIDE 10 MEQ CONTROLLED RELEASE TAB PO ONE (15:45)
[2017-10-01] MEDS: LACTULOSE SYRUP 20 GM/30 ML CUP PO SCH ×2 (16:15→22:47)
[2017-10-01] MEDS: ALPRAZolam 1 MG TAB PO PRN (16:16)
[2017-10-01 16:33] VITALS: BP 154/90; PULSE 78; RESP 18; TEMP 98.4; O2SAT 97
--- NOTE | 2017-10-01 18:54 | MB ---
cc: Tan Lopez MD DATE OF CONSULT: 10/01/2017 REASON FOR CONSULTATION: Elevated troponin. HISTORY OF PRESENT ILLNESS: The patient is a very pleasant 57-year-old gentleman who was seen by cardiology in [facility] who has a history of a [employer] pacemaker and 2 prior coronary stents. The patient presented with nausea and vomiting and as part of his workup, troponins were taken which were slightly elevated. He denies any chest pain now or recently. No shortness of breath, lightheadedness, dizziness, or syncope. In fact, he was hoping to be discharged home. PAST MEDICAL HISTORY: HIV, PUD, hepatitis C, cirrhosis. CURRENT MEDICATIONS: Plavix 75 mg daily, Coreg 6.25 mg q.12, aspirin 81 mg daily, Truvada 1 tab daily, Lasix 20 mg daily, Cipro 5 mg daily, Protonix 40 mg daily, Pravachol 10 mg daily. ALLERGIES: ONDANSETRON. PHYSICAL EXAMINATION: VITAL SIGNS: Afebrile, pulse is 88, respiratory rate 18, blood pressure 184/91, satting 98%. GENERAL: Pleasant gentleman in no distress. NECK: No JVD. LUNGS: Clear to auscultation bilaterally. CARDIOVASCULAR: Regular rate and rhythm. No murmurs appreciated. ABDOMEN: Benign. EXTREMITIES: No edema. LABORATORY DATA: White count 12.5, hematocrit 41.2, platelets 427. Sodium 140, potassium 3.4, chloride 107, bicarb 25.6, BUN 13, creatinine 0.92, glucose 78. Troponins are 0.12, 0.13, 0.17, 0.13. Initial creatinine was 1.84. Toxicology screen is positive for benzos and opiates. DIAGNOSTIC STUDIES: Chest x-ray showed pleural thickening or a small volume of pleural fluid. EKG showed sinus tachycardia at a rate of 115 with fairly diffuse nonspecific ST changes. IMPRESSION: Elevated troponins. The patient has a nonspecific elevation in his troponin with known history of coronary disease and some ST changes on his echocardiogram. Though I do not think he is currently in any acute coronary syndrome, I will have him undergo a nuclear stress test to rule out any significant current ischemia. If his nuclear stress test is nonischemic, he could be discharged from a cardiac standpoint to follow up with his outpatient manager [place]. Thank you again for the opportunity to participate in this patient's care. MD ZAY Roe , 12:10 PM , 06:52 PM
[2017-10-01 20:42] VITALS: BP 174/81; PULSE 87; RESP 18; TEMP 96.6; O2SAT 97
[2017-10-01] MEDS: RIFAXIMIN 200 MG TAB PO SCH (22:47)
[2017-10-01 23:15] VITALS: BP 189/96; PULSE 81; RESP 19; TEMP 98.1; O2SAT 97
[2017-10-02] MEDS: ENALAPRILAT 1.25 MG/ML VIAL IV PUSH PRN ×2 (00:03→22:14)
[2017-10-02] MEDS: ACETAMINOPHEN/HYDROcodone 325 MG/5 MG TAB PO PRN ×5 (00:03→22:18)
[2017-10-02] MEDS: LACTULOSE SYRUP 20 GM/30 ML CUP PO SCH ×4 (04:00→22:00)
--- NOTE | 2017-10-02 06:54 | HHI.PR ---
Subjective Remarks Follow-up elevated troponin and hypertension. Patient has no complaints denies chest pain, shortness of breath, dizziness and headache. Tolerating diet. Discussed with nursing Objective Vitals Vital Signs Date Time Temp Pulse Resp B/P (MAP) Pulse Ox O2 Delivery O2 Flow Rate FiO2 10/01/17 23:15 98.1 81 19 189/96 (127) 97 10/01/17 20:42 96.6 87 18 174/81 (112) 97 10/01/17 16:33 98.4 78 18 154/90 (111) 97 10/01/17 12:44 97.8 77 18 123/73 (90) 97 10/01/17 10:10 97.6 88 18 184/91 (122) 98 I/O 10/01/17 10/01/17 10/01/17 10/02/17 10/02/17 10/02/17 07:00 15:00 23:00 07:00 15:00 23:00 Output Total 275 ml Balance -275 ml Output Urine Total 275 ml Result Diagram: 09/30/17 1633 09/30/17 1633 Imaging Last Impressions Head CT 09/28/17 0500 Signed Impressions: Service Date/Time: Thursday, September 28, 2017 05:30 - CONCLUSION: No acute intracranial abnormality is identified. Juan Carlos Langley MD Chest X-Ray 09/28/17 0352 Signed Impressions: Service Date/Time: Thursday, September 28, 2017 04:21 - CONCLUSION: Small pleural-based opacities bilaterally could represent pleural thickening or small volume of pleural fluid. Otherwise, no acute finding is identified. Juan Carlos Langley MD Abdomen/Pelvis CT 09/28/17 9772 Signed Impressions: Service Date/Time: Thursday, September 28, 2017 05:33 - CONCLUSION: 1. Mild wall thickening and surrounding inflammation of the proximal sigmoid colon could represent a colitis. 2. There is left gastric lymphadenopathy from uncertain etiology. 3. Abnormal lobulated liver characteristic of cirrhosis. 4. There is right lower lobe atelectasis versus consolidation with adjacent pleural thickening. Juan Carlos Langley MD Objective Remarks GENERAL: Well-developed and well-nourished. No signs of dehydration SKIN: Warm and dry. CARDIOVASCULAR: Regular rate and rhythm. RESPIRATORY: No accessory muscle use. Clear to auscultation. Breath sounds equal bilaterally. GASTROINTESTINAL: Abdomen soft, non-tender, nondistended. MUSCULOSKELETAL: Extremities without clubbing, cyanosis, or edema. No obvious deformities. NEUROLOGICAL: Awake and alert. No obvious cranial nerve deficits. Motor grossly within normal limits. Five out of 5 muscle strength in the arms and legs. Normal speech. Procedures EGD showing Prominant esophageal vessel suggestive of early varices. 2. There was mild gastropathy and thick gastric folds mainly in the gastric fundus; multiple biopsies were performed 3. Duodenal inflammation was found in the duodenal bulb A/P Problem List: (1) Duodenitis without bleeding ICD Code: K29.80 - Duodenitis without bleeding (2) Esophageal varices without bleeding ICD Code: I85.00 - Esophageal varices without bleeding (3) Acute kidney injury ICD Code: N17.9 - Acute kidney failure, unspecified (4) Dehydration ICD Code: E86.0 - Dehydration Status: Acute Assessment and Plan Sepsis - resolved, blood cultures negative. likely a viral colitis, stopping abx given lack of fevers and improvement in PO intake. Upper GI bleed, s/p EGD w/ findings of EGD showing Prominent esophageal vessel suggestive of early varices and duodenitis. Patient reports of continued vomiting but not witnessed. Discussed with RN will monitor. Continue PPI Persistently elevated troponin w/ hx of CAD and stenting - despite correction of RF and near normalization of BPs trop still elevated. Continue ASA, plavix, statin and BB. Patient for stress test today Hypertensive urgency-just doubled Coreg dose, will increase lisinopril. Continue to monitor elevated LFT's- with history of hepatitis C- will monitor HIV -positive- on anti- retroviral meds DVT prophylaxis; SCD's Discharge Planning Discharge when cleared by cardiology Romeo Ozuna MD Oct 02, 2017 06:54
[2017-10-02 07:55] LABS: BICARBONATE 23.5 MEQ/L (21.0-32.0); CALCIUM 8.9 MG/DL (8.5-10.1); CREATININE 0.95 MG/DL (0.60-1.30)
[2017-10-02 08:51] VITALS: BP 201/88; PULSE 77; RESP 21; TEMP 98; O2SAT 97
[2017-10-02] MEDS: SODIUM CHLORIDE 0.9% FLUSH 10 ML FLUSH IV FLUSH SCH ×2 (08:58→22:19)
[2017-10-02] MEDS: PRAVASTATIN SOD 10 MG TAB PO SCH (08:58)
[2017-10-02] MEDS: RIFAXIMIN 200 MG TAB PO SCH ×2 (08:58→22:17)
[2017-10-02] MEDS: FUROSEMIDE 20 MG TAB PO SCH (09:00)
[2017-10-02] MEDS: ASPIRIN 81 MG CHEW TAB CHEW SCH (09:00)
[2017-10-02] MEDS: CLOPIDOGREL 75 MG TAB PO SCH (09:00)
[2017-10-02] MEDS: PANTOPRAZOLE SOD 40 MG DELAYED RELEASE TAB PO SCH (09:00)
[2017-10-02] MEDS: EMTRICITABINE/TENOFOVIR 200 MG/300 MG TAB PO SCH (09:00)
[2017-10-02] MEDS: DOLUTEGRAVIR SODIUM 50 MG TAB PO SCH (09:00)
[2017-10-02] MEDS: LISINOPRIL 5 MG TAB PO SCH (09:00)
[2017-10-02] MEDS: PT:DESCOVY PO SCH (09:01)
[2017-10-02] MEDS: BUDESONIDE-FORMOTEROL 80/4.5 MCG INHALER INH SCH ×2 (09:01→22:19)
[2017-10-02] MEDS: CARVEDILOL 6.25 MG TAB PO SCH ×2 (09:03→22:18)
[2017-10-02] MEDS: SODIUM CHLOR 0.9% 1000 ML INJ 1,000 ML IV SCH (10:31)
[2017-10-02] MEDS ORDERED: LISI-519 PO (12:56)
[2017-10-02] MEDS ORDERED: REGADENOSON INJ 0.4 MG/5 ML SYR ONE (13:08)
--- NOTE | 2017-10-02 14:11 | RADRPT ---
EXAM DATE/TIME: 10/02/2017 12:58 [facility] COMPARISON: No previous studies available for comparison. INDICATIONS : Coronary artery disease. Myocardial infarction. DOSE: 25.9 mCi Tc99m Myoview at stress. 8.5 mCi Tc99m Myoview at rest. 0.4 mg Lexiscan STRESS SYMPTOMS: Dyspnea. EJECTION FRACTION: 65% MEDICAL HISTORY : Chronic obstructive pulmonary disease. Congestive heart failure. Hypertension. SURGICAL HISTORY : Coronary artery stent. Pacemaker. ENCOUNTER: Initial ACUITY: 1 day PAIN SCALE: 3/10 LOCATION: Bilateral chest TECHNIQUE: The patient underwent pharmacologic stress with infusion of prescribed dose. Continuous ECG tracing was monitored during stress. Gated SPECT imaging was performed after stress and conventional SPECT i maging was performed at rest. The examination was performed on a SPECT/CT scanner, both attenuation and non-corrected datasets were reviewed. FINDINGS: DISTRIBUTION: The maximum perfused segment at stress is in the inferoseptal wall. PERFUSION STUDY: The pattern of perfusion at stress reveals some mildly decreased activity in the inferolateral wall GATED STUDY: There is intact wall motion and thickening without hypokinetic or dyskinetic segments. CONCLUSION: 1. Mild reversibility at the inferolateral wall which may indicate mild ischemia. 2. No wall motion abnormalities with the ejection fraction 65% RISK CATEGORY: Intermediate (1-3% Annual Mortality Rate) Eric Pereira MD on October 02, 2017 at 14:06 Board Certified Radiologist. This report was verified electronically.
[2017-10-02 22:07] VITALS: BP 207/100; PULSE 81; RESP 18; TEMP 98.5; O2SAT 96
[2017-10-02] MEDS: LISINOPRIL 10 MG TAB PO SCH (22:17)
[2017-10-02] MEDS: LACTULOSE SYRUP 20 GM/30 ML CUP PO PRN (22:18)
[2017-10-02 23:41] VITALS: BP 159/113; PULSE 78; RESP 18; TEMP 98.6; O2SAT 96
[2017-10-03 02:46] VITALS: BP 189/89; PULSE 75; RESP 20; TEMP 98.4; O2SAT 96
[2017-10-03] MEDS ORDERED: cloNIDine HCL 0.1 MG TAB PO ONE (03:30)
[2017-10-03] MEDS: LACTULOSE SYRUP 20 GM/30 ML CUP PO SCH ×2 (03:57→10:00)
[2017-10-03] MEDS: SODIUM CHLOR 0.9% 1000 ML INJ 1,000 ML IV SCH (06:31)
[2017-10-03 07:40] VITALS: BP 147/80; PULSE 74; RESP 16; TEMP 98.2; O2SAT 95
--- NOTE | 2017-10-03 08:44 | PD.CARD.PN ---
Subjective Subjective Remarks Note from yesterday didn't save; no cp he wants to go home. Objective Medications Current Medications Medications (Trade) Dose Ordered Sig/Zuhair Route Start Time Stop Time Status Last Admin Sodium Chloride 1,000 ml @ 50 mls/hr Q20H IV 09/28/17 06:31 10/01/17 13:40 (NS Flush) 2 ml UNSCH PRN IV FLUSH 09/28/17 06:45 09/29/17 15:29 (NS Flush) 2 ml BID IV FLUSH 09/28/17 09:00 10/02/17 22:19 (Narcan Inj) 0.4 mg UNSCH PRN IV PUSH 09/28/17 06:45 (Milk Of Magnesia Liq) 30 ml Q12H PRN PO 09/28/17 06:45 (Senokot) 17.2 mg Q12H PRN PO 09/28/17 06:45 (Dulcolax Supp) 10 mg DAILY PRN RECTAL 09/28/17 06:45 (Lactulose Liq) 30 ml DAILY PRN PO 09/28/17 06:45 10/01/17 05:19 (Xanax) 1 mg Q6H PRN PO 09/28/17 06:45 10/01/17 16:16 (Aspirin Chew) 81 mg DAILY CHEW 09/28/17 09:00 10/02/17 09:00 (Plavix) 75 mg DAILY PO 09/28/17 09:00 10/02/17 09:00 (Truvada 200-300 Mg) 1 tab DAILY PO 09/28/17 09:00 10/02/17 09:00 (Lasix) 20 mg DAILY PO 09/28/17 09:00 10/02/17 09:00 (Symbicort 80-4.5 Mcg Inh) 2 puff BID INH 09/28/17 09:00 10/02/17 22:19 (Protonix) 40 mg DAILY PO 09/28/17 09:00 10/02/17 09:00 (Pravachol) 10 mg DAILY PO 09/28/17 09:00 10/02/17 08:58 ([place] 5-325 Mg) 1 tab Q4H PRN PO 09/28/17 12:45 ([place] 5-325 Mg) 2 tab Q4H PRN PO 09/28/17 12:45 10/02/17 22:18 (Vasotec Inj) 1.25 mg Q8H PRN IV PUSH 09/28/17 17:15 10/02/17 22:14 (Compazine Inj) 5 mg Q8H PRN IV PUSH 09/28/17 17:15 09/28/17 18:24 Patient Own Medication PT OWN MED: DESCOVY... DAILY PO 09/29/17 09:00 10/02/17 09:01 (Coreg) 6.25 mg Q12HR PO 10/01/17 09:00 10/02/17 22:18 (Lactulose Liq) 30 ml Q6H PO 10/01/17 16:00 10/02/17 15:34 (Xifaxan) 200 mg BID PO 10/01/17 21:00 10/02/17 22:17 (Prinivil) 10 mg BID PO 10/02/17 21:00 10/02/17 22:17 Vital Signs / I&O Vital Signs Date Time Temp Pulse Resp B/P (MAP) Pulse Ox O2 Delivery O2 Flow Rate FiO2 10/03/17 07:40 98.2 74 16 147/80 (102) 95 Manual Cuff/Auscultation 10/03/17 02:46 98.4 75 20 189/89 (122) 96 10/02/17 23:41 98.6 78 18 159/113 (128) 96 10/02/17 22:07 98.5 81 18 207/100 (135) 96 10/02/17 08:51 98.0 77 21 201/88 (125) 97 I/O 10/02/17 10/02/17 10/02/17 10/03/17 10/03/17 10/03/17 07:00 15:00 23:00 07:00 15:00 23:00 Output Total 400 ml Balance -400 ml Output Urine Total 400 ml # Voids 3 Physical Exam GENERAL: This is a well-nourished, well-developed patient, in no apparent distress. CARDIOVASCULAR: Regular rate and rhythm without murmurs, gallops, or rubs. RESPIRATORY: Clear to auscultation. Breath sounds equal bilaterally. No wheezes , rales, or rhonchi. GASTROINTESTINAL: Abdomen soft, non-tender, nondistended. Normal active bowel sounds MUSCULOSKELETAL: Extremities without clubbing, cyanosis, or edema. NEURO: Alert & Oriented x4 to person, place, time, situation. Moves all ext x4 Imaging Last Impressions Myocardial Perfusion Scan Nuc Med 10/02/17 0600 Signed Impressions: Service Date/Time: Monday, October 02, 2017 12:58 - CONCLUSION: 1. Mild reversibility at the inferolateral wall which may indicate mild ischemia. 2. No wall motion abnormalities with the ejection fraction 65%% RISK CATEGORY: Intermediate (1-3%% Annual Mortality Rate) Eric Pereira MD Head CT 09/28/17 0500 Signed Impressions: Service Date/Time: Thursday, September 28, 2017 05:30 - CONCLUSION: No acute intracranial abnormality is identified. Juan Carlos Langley MD Chest X-Ray 09/28/17351 Signed Impressions: Service Date/Time: Thursday, September 28, 2017 04:21 - CONCLUSION: Small pleural-based opacities bilaterally could represent pleural thickening or small volume of pleural fluid. Otherwise, no acute finding is identified. Juan Carlos Langley MD Abdomen/Pelvis CT 09/28/17351 Signed Impressions: Service Date/Time: Thursday, September 28, 2017 05:33 - CONCLUSION: 1. Mild wall thickening and surrounding inflammation of the proximal sigmoid colon could represent a colitis. 2. There is left gastric lymphadenopathy from uncertain etiology. 3. Abnormal lobulated liver characteristic of cirrhosis. 4. There is right lower lobe atelectasis versus consolidation with adjacent pleural thickening. Juan Carlos Langley MD Assessment and Plan Problem List: (1) Troponin level elevated ICD Codes: R74.8 - Abnormal levels of other serum enzymes Plan: very unlikely ACS; probable slight troponin elevation due to renal dysfunction and hypertension, possible mild inferolateral ischemia without chest pain can be treated medically; I did offer cath vs medical mgt and he prefers medical mgt and he will f/u with his home sample cutter. Service date for this note is 10-02-2017 Tan Lopez MD Oct 03, 2017 08:44
[2017-10-03] MEDS: PT:DESCOVY PO SCH (11:07)
[2017-10-03] MEDS: RIFAXIMIN 200 MG TAB PO SCH (11:07)
[2017-10-03] MEDS: PANTOPRAZOLE SOD 40 MG DELAYED RELEASE TAB PO SCH (11:07)
[2017-10-03] MEDS: CLOPIDOGREL 75 MG TAB PO SCH (11:08)
[2017-10-03] MEDS: PRAVASTATIN SOD 10 MG TAB PO SCH (11:08)
[2017-10-03] MEDS: ASPIRIN 81 MG CHEW TAB CHEW SCH (11:08)
[2017-10-03] MEDS: EMTRICITABINE/TENOFOVIR 200 MG/300 MG TAB PO SCH (11:08)
[2017-10-03] MEDS: LISINOPRIL 10 MG TAB PO SCH (11:08)
[2017-10-03] MEDS: DOLUTEGRAVIR SODIUM 50 MG TAB PO SCH (11:08)
[2017-10-03] MEDS: CARVEDILOL 6.25 MG TAB PO SCH (11:08)
[2017-10-03] MEDS: FUROSEMIDE 20 MG TAB PO SCH (11:08)
[2017-10-03] MEDS: SODIUM CHLORIDE 0.9% FLUSH 10 ML FLUSH IV FLUSH SCH (11:09)
[2017-10-03] MEDS: BUDESONIDE-FORMOTEROL 80/4.5 MCG INHALER INH SCH (11:09)
[2017-10-03] MEDS: ACETAMINOPHEN/HYDROcodone 325 MG/5 MG TAB PO PRN (11:17)
== END 2017-10-03 11:32 | disposition home or self-care (01) | DRG 872 ==
LOC: NEPC 03:09 → NEDA 06:15 → NEPFCDU 15:34
PROVIDERS: ADMIT Hospitalist; ATTEND Hospitalist
PROC: 0DB68ZX Excision of Stomach, Via Natural or Artificial Opening Endoscopic, Diagnostic (ICD-10-PCS; principal; 2017-09-29 12:19)
DX: A41.9 Sepsis, unspecified organism (principal); E87.2 Acidosis; N17.9 Acute kidney failure, unspecified; I85.10 Secondary esophageal varices without bleeding; I48.91 Unspecified atrial fibrillation; R16.2 Hepatomegaly with splenomegaly, not elsewhere classified; K74.60 Unspecified cirrhosis of liver; E86.0 Dehydration; I10 Essential (primary) hypertension; J98.11 Atelectasis; I16.1 Hypertensive emergency; A08.4 Viral intestinal infection, unspecified; I25.10 Atherosclerotic heart disease of native coronary artery without angina pectoris; K29.80 Duodenitis without bleeding; K31.9 Disease of stomach and duodenum, unspecified; R59.1 Generalized enlarged lymph nodes; H91.90 Unspecified hearing loss, unspecified ear; R74.8 Abnormal levels of other serum enzymes; Z21 Asymptomatic human immunodeficiency virus [HIV] infection status; Z95.0 Presence of cardiac pacemaker; Z95.5 Presence of coronary angioplasty implant and graft
CPT/HCPCS: 36600; 70450; 71045; 74177; 78452; 80048; 80053; 80307; 81001; 82140; 82550; 82552; 82805; 83605; 83690; 83735; 83880; 84484; 85025; 85610; 85730; 86140; 87040; 88305; 93005; 93017; 96361; 96374; 96375; A9502; J0780; J2270; J2370; J2543; J2785; J3370; J7030; J7040; J7050; Q9967